=== PATIENT | female | born 1985 | race Caucasian/White ===

== ENCOUNTER 2024-06-01 09:00 | Emergency (ER) | payer MEDICAID, SELFPAY ==
[2024-06-01 09:08] VITALS: BMI 51.7
[2024-06-01 09:09] VITALS: BP 143/69; PULSE 67; RESP 18; TEMP 37.1; O2SAT 96
--- NOTE | 2024-06-01 09:38 | EDNOTE_ITS ---
ED Fever RME/HPI General Chief Complaint: Fever Stated Complaint: Fever, cough, vomiting, body aches Time Seen by Provider: 06/01/24 09:04 Arrival date/time: 06/01/24 09:00 39-year-old female presents emergency department complaints of fever, cough, congestion, bodies, vomiting patient does report positive sick contacts Limitations: no limitations Related Data Home Medications ?Medication ?Instructions ?Recorded ?Confirmed [id number] 1 mg 1 tab PO QDAY 01/16/22 04/08/22 tablet enoxaparin 40 mg/0.4 mL 40 ml subcut QDAY 03/01/22 04/08/22 subcutaneous syringe Previous Rx's ?Medication ?Instructions ?Recorded doxycycline hyclate 100 mg capsule 100 mg PO BID #14 caps 02/17/23 phenazopyridine 200 mg tablet 200 mg PO TID 6 doses #6 tabs 02/17/23 (Pyridium) Allergies Allergy/AdvReac Type Severity Reaction Status Date / Time No Known Allergies Allergy Verified 02/17/23 09:30 Review of Systems Review of Systems Systems Reviewed: All systems reviewed, normal except as documented Constitutional Constitutional: Reports system reviewed and no additional complaints, except as documented, Reports body ache(s), Reports chills, Reports fever(s) and Reports headache(s) Eyes Eyes: Reports system reviewed and no additional complaints, except as documented and Denies blurry vision ENT Ears, Nose, Mouth, and Throat: Reports system reviewed and no additional complaints, except as documented, Reports headache(s), Reports nasal congestion and Reports nasal discharge Cardiovascular Cardiovascular: Reports system reviewed and no additional complaints, except as documented, Denies chest pain and Denies dyspnea Respiratory Respiratory: Reports system reviewed and no additional complaints, except as documented, Denies chest congestion, Denies cough and Denies dyspnea Gastrointestinal Gastrointestinal: Reports system reviewed and no additional complaints, except as documented, Denies abdominal pain, Reports loose stools, Reports nausea and Reports vomiting Integumentary/Breasts Skin/Breast: Reports system reviewed and no additional complaints, except as documented and Denies rash Neurologic Neurologic: Reports system reviewed and no additional complaints, except as documented, Reports as per HPI and Reports headache(s) Past Medical History Past Medical History NEUROLOGIC: Negative Neurological Disorders CARDIAC: Negative Cardiac Disorders Physical Exam General Limitations: no limitations General appearance: alert and in no apparent distress Head Head exam: atraumatic, normocephalic and normal inspection Eye Eye exam: Present normal appearance, PERRL and EOMI; Absent conjunctival injection ENT ENT exam: Present normal exam, normal oropharynx and mucous membranes moist Neck Neck exam: Present normal inspection, full ROM and trachea midline; Absent tenderness, meningismus or lymphadenopathy Chest Chest inspection: Present normal inspection and symmetric chest wall rise Respiratory Respiratory exam: Present normal lung sounds bilaterally; Absent respiratory distress Cardiovascular Cardiovascular exam: Present regular rate, normal rhythm and normal heart sounds Abdominal Exam Abdominal exam: Present soft and normal bowel sounds; Absent distention, tenderness, guarding, rebound or rigidity Extremities Exam Extremities exam: Present normal inspection and full ROM Back Exam Back exam: Present normal inspection and full ROM Neurological Exam Neurological exam: Present alert, oriented X3 and CN II-XII intact Psychiatric Psychiatric exam: Present normal affect and normal mood Skin Skin exam: Present warm, dry, intact and normal color ED Exam General Limitations: Present no limitations General appearance: Present alert and in no apparent distress Head Head exam: Present atraumatic, normocephalic and normal inspection Eye Eye exam: Present normal appearance, PERRL and EOMI; Absent conjunctival injection ENT ENT exam: Present normal exam, normal oropharynx and mucous membranes moist Neck Neck exam: Present normal inspection, full ROM and trachea midline; Absent tenderness, meningismus or lymphadenopathy Chest Chest inspection: Present normal inspection and symmetric chest wall rise Respiratory Respiratory exam: Present normal lung sounds bilaterally; Absent respiratory distress Cardiovascular Cardiovascular exam: Present regular rate, normal rhythm and normal heart sounds Abdominal Exam Abdominal exam: Present soft and normal bowel sounds; Absent distention, tenderness, guarding, rebound or rigidity Extremities Exam Extremities exam: Present normal inspection and full ROM Back Exam Back exam: Present normal inspection and full ROM Neurological Exam Neurological exam: Present alert, oriented X3 and CN II-XII intact Psychiatric Psychiatric exam: Present normal affect and normal mood Skin Skin exam: Present warm, dry, intact and normal color Course Quality Measures none Orders Category Date Time Status Bedside Influenza A&B Antigen Test NOW Care 06/01/24 09:04 Completed Vital Signs Vital signs: Vital Signs Temperature 98.8 F 06/01/24 09:09 Pulse Rate 67 06/01/24 09:09 Respiratory Rate 18 06/01/24 09:09 Blood Pressure 143/69 H 06/01/24 09:09 Pulse Oximetry (%) 96 06/01/24 09:09 Oxygen Delivery Method Room Air 06/01/24 09:09 O2 saturation 96% room air within normal limits Fever MDM Narrative MDM Narrative:: 39-year-old female presents emergency department complaints of fever, cough, congestion, bodies, vomiting patient does report positive sick contacts Patient checked for the flu which came back negative symptoms are consistent with viral illness I did offer an x-ray patient declined Patient will be treated symptomatically Patient given note for work At time of discharge patient well-appearing not a ill or toxic and hemodynamically stable Patient discharged home in no distress to follow-up with primary care doctor in the next 24 to 48 hours and for any worsening symptoms to return to the ER immediately Patient data External records reviewed:: [facility] previous records Clinical information provided by:: patient Social determinants that could affect healthcare access:: none Patient has the following chronic illnesses:: See history How is presenting disease/condition affected by chronic disease/condition?: no chronic disease Evaluation data The following diagnostics were reviewed and interpreted by me:: lab results Lab and/or radiology exams considered but not ordered:: Lab obtained Interpretation Summary: Reviewed by me Medications / Prescriptions Medications or Prescriptions considered but not ordered:: Given Medication administrations:: Given Consultations Consultation(s) initiated? (list below): No Diagnosis Fever Differential Diagnosis: fever of unknown origin, community acquired pneumonia, viral infection and influenza Most likely diagnosis given after review of the tests above:: Viral infection Admission Indicated Admission indicated?: not indicated Admission Request Was there a request for admission?: No Disposition Plan Disposition Plan: Discharge Discharge Attestation Discharge Attestation: The patient and all family members were given an opportunity to ask questions and understood the discharge instructions. Discharge instructions specifically effects, indications for sooner follow up or return to the emergency department, and the expected course of current diagnosis. Patient condition: Stable Discharge Plan Plan Patient Disposition: HOME (Self Care) Disposition Comment: Stable Prescriptions/Referrals Prescriptions/Med Rec: No Action [id number]-[id number] 1 mg Tablet 1 tab PO QDAY enoxaparin 40 mg/0.4 mL syringe 40 ml subcut QDAY Patient Comments: INJECT contents of ONE pre-filled PEN SUBCUTANEOUSLY EVERY DAY doxycycline hyclate 100 mg capsule 100 mg PO BID Qty: 14 0RF phenazopyridine [Pyridium] 200 mg tablet 200 mg PO TID Qty: 6 0RF Problem List Clinical Impression: Viral infection Patient/Caregiver Discharge Instructions Education Materials: ED Viral Syndrome (Adult) Additional Instructions: Please follow up with your primary care doctor in the next 24-48hrs for any worsening symptoms return here immediately Print Language: Kyrgyz Stand Alone Forms: Lisandra Award Info., Work/School Release, Patient Portal Info Letter PA/OCCUPATIONAL HEALTH AND SAFETY ADVISER Supervising Physician PA/OCCUPATIONAL HEALTH AND SAFETY ADVISER Supervising Physician: Dr Miguel
== END 2024-06-01 10:00 | disposition home or self-care (01) ==
LOC: SERX 09:46
PROVIDERS: Emergency Provider Emergency Medicine; PCP Internal Medicine
DX: B34.9 Viral infection, unspecified (principal)
CPT/HCPCS: 87400; 99283

== ENCOUNTER 2024-07-26 07:38 | Emergency (ER) | payer MEDICAID, SELFPAY ==
[2024-07-26 08:02] VITALS: BP 138/92; PULSE 67; RESP 22; TEMP 36.8; O2SAT 99; BMI 52.2
--- NOTE | 2024-07-26 08:06 | XR_ITS ---
Examination: CT abdomen and pelvis without contrast. Coronal 3-D reconstructions. Sagittal 2-D reconstructions. Date and time of exam:July 26, 2024 0914 hrs. Comparison 02/17/2023 Indications: Generalized abdominal pain today, history kidney stones CTDI: vol (mGy): 23.3 DLP: (mGycm): 1511 Technique: Axial images of the abdomen have been obtained, 3 mm slice thickness Intravenous contrast material has not been administered. Low dose protocols were performed. One or more of the following dose reduction techniques were used; automated exposure control, adjustment of the mA and/or KV according to patient size, use of iterative reconstruction technique. Findings: Diffuse fatty liver with hepatomegaly 23 cm Splenomegaly 15 cm Cholelithiasis No pancreatic or adrenal mass 12 mm anterior left renal cyst No renal or ureteral calculi, no hydronephrosis Aorta normal size Minute fat-containing umbilical hernia No pericecal inflammatory change 10 cm pelvic hernia defect containing bowel but no incarcerated bowel Anteverted uterus No adnexal mass Contracted urinary bladder Moderate narrowing hip joints Impression: Hepatosplenomegaly Cholelithiasis, recommend hepatobiliary sonography follow-up No renal or ureteral calculi, no hydronephrosis 10 cm pelvic hernia defect containing bowel but no incarcerated bowel or bowel obstruction
[2024-07-26 08:35] LABS: Collection Type, Urine Clean Catch
[2024-07-26 08:47] LABS: HCG Qualitative,Urine Negative
[2024-07-26 08:47] LABS: Basophils % (Auto) 0 % (0-2.5); Eosinophils # (Auto) 0.2 Thou/mm3 (0.0-0.5); Eosinophils % (Auto) 2 % (0-10); Hematocrit 39.1 % (36.0-46.0); Hemoglobin 12.4 g/dL (12.0-16.0); Immature Granulocytes % (Auto) 1 % (0-0); Immature Granulocytes Auto 0.05 Thou/mm3 (0.00-0.00); Lymphocytes # (Auto) 1.8 Thou/mm3 (1.0-4.8); Lymphocytes % (Auto) 20 % (10-50); Mean Corpuscular HGB Conc 31.7 g/dl (31.0-37.0); Mean Corpuscular Hemoglobin 25.3 pg (25.0-35.0); Mean Corpuscular Volume 80 fL (80-100); Monocytes # (Auto) 0.5 Thou/mm3 (0.0-0.8); Monocytes % (Auto) 6 % (0-12); Neutrophils # (Auto) 6.6 Thou/mm3 (1.8-7.7); Neutrophils % (Auto) 72 % (37-80); Nucleated Red Blood Cell % 0 /100 WBC (0); Platelet Count 288 Thou/mm3 (140-440); RDW Standard Deviation 40.4 fL (36.4-46.3); Red Blood Count 4.91 Miln/mm3 (4.00-5.20); White Blood Count 9.2 Thou/mm3 (3.6-11.0)
[2024-07-26 09:01] LABS: Alanine Aminotransferase 20 U/L (10-49); Albumin, Serum 4.4 gm/dL (3.5-5.0); Albumin/Globulin Ratio 1.6 (1.2-2.2); Alkaline Phosphatase 64 U/L (46-116); Anion Gap 6 (7-16); Aspartate Amino Transferase 15 U/L (0-34); BUN/Creatinine Ratio 13 Ratio (12-20); Bilirubin,Total 0.6 mg/dL (0.3-1.2); Blood Urea Nitrogen 8 mg/dL (9-23); Calcium 9.3 mg/dL (8.3-10.6); Calcium (Corrected) 9.3 mg/dL (8.5-10.1); Carbon Dioxide 28.8 mMol/L (20.0-31.0); Chloride 106 mMol/L (98-107); Creatinine (Component) 0.6 mg/dL (0.6-1.3); Estimated Creatinine Clearance 189.2 mL/min (>60); Globulin 2.8 gm/dL (2.3-3.5); Glucose 104 mg/dL (74-106); Lipase 37 U/L (12-53); Osmolality,Calculated 279 (275-295); Potassium 3.6 mMol/L (3.4-5.1); Sodium 141 mMol/L (136-145); Total Protein 7.2 gm/dL (5.7-8.2); eGFR > 60 See Note
[2024-07-26 09:12] LABS: Amphetamine/Methamp Scrn,U Negative (Negative); Barbiturate Screen,Urine Negative (Negative); Benzodiazepines Screen,Urine Negative (Negative); Benzoylecgonine Screen, Ur Negative (Negative); Fentanyl Screen,Urine Negative (Negative); Opiate Screen,Urine Negative (Negative); THC Screen,Urine Positive (Negative)
[2024-07-26 09:58] LABS: RBC,Urine 2 /hpf (0-3); Squamous Epithelial Cell,Urine 3 /hpf (0-5); WBC,Urine 2 /hpf (0-5)
[2024-07-26 10:03] LABS: Bilirubin,Urine Negative (Negative); Blood,Urine Negative (Negative); Clarity,Urine Clear (Clear/Hazy); Color,Urine Lt Yellow (Lt Yel-Yel); Culture Indicated,Urine Not Indicated; Glucose, Urine Negative (Negative); Ketones,Urine Negative (Negative); Leukocyte Esterase,Urine Negative (Negative); Nitrite,Urine Negative (Negative); Protein,Urine Trace (Neg - Trace); Specific Gravity,Urine 1.025 (1.001-1.035); Urobilinogen,Urine 0.2 mg/dL (0.0-1.0)
[2024-07-26] MEDS: KETOROLAC INJ 30 MG/ML VIAL IM (11:50)
[2024-07-26] MEDS: HYDROcodone/APAP 5/325 TABLET 1 TAB PO (11:50)
--- NOTE | 2024-07-26 12:26 | EDNOTE_ITS ---
ED Abdominal Pain RME/HPI General Chief Complaint: Abdominal Pain Stated complaint: ABD PAIN, NUMBNESS THROUGHOUT BODY, COUGH, SOB Time seen by provider: 07/26/24 07:42 Arrival date/time: 07/26/24 07:38 39-year-old female presents the emergency department today complaints of abdominal pain patient reports that she has been having pain to her site as well as lower abdomen ongoing for months. Patient reports no fever nausea or vomiting Limitations: no limitations Related Data Home Medications ?Medication ?Instructions ?Recorded ?Confirmed [id number] 1 mg 1 tab PO QDAY 2 04/08/22 tablet enoxaparin 40 mg/0.4 mL 40 ml subcut QDAY 03/01/22 1 06/08/21 subcutaneous syringe Previous Rx's ?Medication ?Instructions ?Recorded doxycycline hyclate 100 mg capsule 100 mg PO BID #14 c aps 02/17/23 phenazopyridine 200 mg tablet 200 mg PO TID 6 doses #6 tabs 02/17/23 (Pyridium) docusate sodium 100 mg capsule 100 mg PO BID 7 days #1 4 caps 07/26/24 hydrocodone 5 mg-acetaminophen 325 1 tab PO BID PRN pa in #10 tabs 07/26/24 mg tablet ibuprofen 800 mg tablet 800 mg PO TID PRN pain #30 t abs 07/26/24 polyethylene glycol 3350 17 17 g PO QDAY 3 days #119 g penelope 07/26/24 gram/dose oral powder (Miralax) Allergies Allergy/AdvReac Type Severity Reaction Status Date / Time No Known Allergies Allergy Verified 02/17/23 09:30 Review of Systems Review of Systems Systems Reviewed: All systems reviewed, normal except as documented Constitutional Constitutional: Reports system reviewed and no additional complaints, except as documented, Denies fever(s) and Denies headache(s) Eyes Eyes: Reports system reviewed and no additional complaints, except as documented and Denies blurry vision ENT Ears, Nose, Mouth, and Throat: Reports system reviewed and no additional complaints, except as documented, Denies headache(s), Denies nasal congestion and Denies nasal discharge Cardiovascular Cardiovascular: Reports system reviewed and no additional complaints, except as documented, Denies chest pain and Denies dyspnea Respiratory Respiratory: Reports system reviewed and no additional complaints, except as documented, Denies chest congestion, Denies cough and Denies dyspnea Gastrointestinal Gastrointestinal: Reports system reviewed and no additional complaints, except as documented and Reports abdominal pain Integumentary/Breasts Skin/Breast: Reports system reviewed and no additional complaints, except as documented and Denies rash Neurologic Neurologic: Reports system reviewed and no additional complaints, except as documented, Reports as per HPI and Denies headache(s) Past Medical History Past Medical History NEUROLOGIC: Negative Neurological Disorders or Seizures CARDIAC: Negative Cardiac Disorders, Myocardial Infarction or Congestive Heart Failure RESPIRATORY: Negative Chronic Obstructive Pulmonary Disease (COPD) or Asthma GASTROINTESTINAL: Negative Gastrointestinal Disorders or Hepatitis GENITOURINARY: Negative Genitourinary Disorders or Renal Disease REPRODUCTIVE: Positive Previous Pregnancies MUSCULOSKELETAL: Negative Musculoskeletal Disorders ENDOCRINE: Positive Endocrine Disorders; Negative Diabetes Mellitus Type 1 or Diabetes Mellitus Type 2 HEMATOLOGIC: Positive Blood Disorders and Clotting Problems; Negative Sickle Cell Disease PSYCHO/SOCIAL: Positive Anxiety and Depression OTHER HISTORY: Positive Hospitalization and Chicken Pox; Negative Autoimmune Disease, Blood Transfusions, Blood Transfusion Reaction, Anesthesia Reactions, MRSA, VRSA, Vancomycin-Resistant Enterococci, Human Immunodeficiency Virus (HIV), Measles, Mumps, Rubella (Indian Measles), Pertussis, Clostridium Difficile, Cancer or Lung Cancer Family History FAMILY HISTORY: Positive Family Cardiac Disorders and Family Cancer; Negative Family Psychiatric Problems, Family Respiratory Disorders, Family Gastrointestinal Problems, Family Surgery or Family Anesthesia Reaction Surgical History SURGICAL: Positive Throat Surgery and Section Social History SMOKING STATUS: Never smoker SECOND HAND EXPOSURE: No 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) ED Exam General Limitations: Present no limitations General appearance: Present alert and in no apparent distress Head Head exam: Present atraumatic, normocephalic and normal inspection Eye Eye exam: Present normal appearance, PERRL and EOMI; Absent conjunctival injection ENT ENT exam: Present normal exam, normal oropharynx and mucous membranes moist Neck Neck exam: Present normal inspection, full ROM and trachea midline Chest Chest inspection: Present normal inspection and symmetric chest wall rise Respiratory Respiratory exam: Present normal lung sounds bilaterally; Absent respiratory distress Cardiovascular Cardiovascular exam: Present regular rate, normal rhythm and normal heart sounds; Absent bradycardia, tachycardia or irregular rhythm Abdominal Exam Abdominal exam: Present soft and normal bowel sounds; Absent distention, tenderness, guarding, rebound or rigidity Extremities Exam Extremities exam: Present normal inspection and full ROM Back Exam Back exam: Present normal inspection and full ROM Neurological Exam Neurological exam: Present alert, oriented X3, CN II-XII intact, normal gait and reflexes normal; Absent motor sensory deficit Psychiatric Psychiatric exam: Present normal affect and normal mood; Absent depressed or agitated Skin Skin exam: Present warm, dry, intact and normal color; Absent rash Course Quality Measures none Orders Category Date Time Status Consult to General Surgery Stat Cons 07/26/24 12:[address] abdomen pelvis wo con Stat Exams 07/26/24 08:06 Completed CBC Stat Lab 07/26/24 08:30 Completed Comprehensive Metabolic Panel Stat Lab 07/26/24 08:30 Completed Drug Screen,Urine Stat Lab 07/26/24 08:32 Completed HCG Qualitative,Urine Stat Lab 07/26/24 08:32 Completed Lipase Stat Lab 07/26/24 08:30 Completed UA, C/S IF [Urinalysis, C/S if Indicated] Stat Lab 07/26/24 08:32 Completed HYDROcodone*/APAP 5/325 [[place] 5/325] Med 07/26/24 10:47 Discontinued 1 tab PO X1 ONE Ketorolac Inj [Toradol Inj] Med 07/26/24 10:47 Discontinued 30 mg IM X1 ONE Vital Signs Vital signs: Vital Signs Temperature 98.2 F 07/26/24 08:02 Pulse Rate 67 07/26/24 08:02 Respiratory Rate 22 H 07/26/24 08:02 Blood Pressure 138/92 H 07/26/24 08:02 Pulse Oximetry (%) 99 07/26/24 08:02 Oxygen Delivery Method Room Air 07/26/24 08:02 O2 saturation 99% room air within normal limits Abdominal Pain [facility] MDM Narrative MDM Narrative:: 39-year-old female presents the emergency department today complaints of abdominal pain patient reports that she has been having pain to her site as well as lower abdomen ongoing for months. Patient reports no fever nausea or vomiting On exam patient does have tenderness to the abdomen I cannot appreciate any abnormality on exam patient is morbidly obese Lab work as well as CT scan obtained CT scan consistent with large hernia Consultation: I asked Dr. Garcia to come evaluate the patient Surgeon evaluated patient felt patient be discharged home at this time follow-up on an outpatient basis Patient discharged home in no distress to follow-up with primary care doctor in the next 24 to 48 hours and for any worsening symptoms to return to the ER immediately Patient data External records reviewed:: [facility] previous records Clinical information provided by:: patient Social determinants that could affect healthcare access:: none Patient has the following chronic illnesses:: She history How is presenting disease/condition affected by chronic disease/condition?: exacerbated by Evaluation data The following diagnostics were reviewed and interpreted by me:: lab results and radiology exam(s) Lab and/or radiology exams considered but not ordered:: Labs radiology obtained Interpretation Summary: Reviewed by me Medications / Prescriptions Medications or Prescriptions considered but not ordered:: Given Medication administrations:: Medication Administration History Discontinued Medications Hydrocodone Bitart/Acetaminophen (Hydrocodone/Apap 5/325 Tablet) 1 tab PO X1 ONE Stop: 07/26/24 10:48 Last Admin: 07/26/24 11:50 Dose: 1 tab Documented By: AF Ketorolac Tromethamine (Ketorolac Inj 30 Mg/Ml Vial) 30 mg IM X1 ONE Stop: 07/26/24 10:48 Last Admin: 07/26/24 11:50 Dose: 30 mg Documented By: THIEN Given Consultations Consultation(s) initiated? (list below): Yes Consultation #1 (Physician, Specialty, Details): Dr. Garcia general surgeon Diagnosis Differential diagnosis abdominal pain: abdominal pain, acute appendicitis, calculus of kidney, constipation, diverticulitis, pancreatitis and small bowel obstruction Most likely diagnosis given after review of the tests above:: Abdominal pain, hernia Admission Indicated Admission indicated?: not indicated Admission Request Was there a request for admission?: No Disposition Plan Disposition Plan: Discharge Discharge Attestation Discharge Attestation: The patient and all family members were given an opportunity to ask questions and understood the discharge instructions. Discharge instructions specifically effects, indications for sooner follow up or return to the emergency department, and the expected course of current diagnosis. Patient condition: Stable Discharge Plan Plan Patient Disposition: HOME (Self Care) Disposition Comment: Stable Prescriptions/Referrals Prescriptions/Med Rec: New ibuprofen 800 mg tablet 800 mg PO TID PRN (Reason: pain) Qty: 30 0RF hydrocodone-acetaminophen 5-325 mg tablet 1 tab PO BID MDD 10 PRN (Reason: pain) Qty: 10 0RF polyethylene glycol 3350 [Miralax] 17 gram/dose powder 17 g PO QDAY 3 Days Qty: 119 0RF docusate sodium 100 mg capsule 100 mg PO BID 7 Days Qty: 14 0RF No Action [id number] 1 mg Tablet 1 tab PO QDAY enoxaparin 40 mg/0.4 mL syringe 40 ml subcut QDAY Patient Comments: INJECT contents of ONE pre-filled PEN SUBCUTANEOUSLY EVERY DAY doxycycline hyclate 100 mg capsule 100 mg PO BID Qty: 14 0RF phenazopyridine [Pyridium] 200 mg tablet 200 mg PO TID Qty: 6 0RF Referrals: No Primary/Family,Physician [Primary Care Provider] - 07/27/24 Problem List Clinical Impression: Pelvic hernia, Abdominal pain Patient/Caregiver Discharge Instructions Education Materials: Abdominal Pain Additional Instructions: Please follow up with your primary care doctor in the next 24-48hrs for any worsening symptoms return here immediately Print Language: Armenian Stand Alone Forms: Lisandra Award Info., Patient Portal Info Letter PA/CANVASS MANAGER Supervising Physician PA/CANVASS MANAGER Supervising Physician: Dr. Altman
== END 2024-07-26 12:31 | disposition home or self-care (01) ==
PROVIDERS: Nurse Practitioner Primary Care; Emergency Provider Emergency Medicine
DX: K46.9 Unspecified abdominal hernia without obstruction or gangrene (principal); E66.01 Morbid (severe) obesity due to excess calories; Z68.43 Body mass index [BMI] 50.0-59.9, adult
CPT/HCPCS: 36415; 74176; 80053; 80307; 81001; 81025; 83690; 85025; 96372; 99283; J1885; A9270

== ENCOUNTER 2024-08-20 18:19 | Emergency (ER) | payer MEDICAID, SELFPAY ==
[2024-08-20 18:19] VITALS: BMI 48.4
[2024-08-20 19:12] VITALS: BP 159/79; PULSE 66; RESP 18; TEMP 36.4; O2SAT 98
[2024-08-20] MEDS: KETOROLAC INJ 60 MG/2 ML VIAL IM (19:45)
[2024-08-20] MEDS: AMOXICILLIN/POT CLAV 875 TABLET 1 TAB PO (19:46)
--- NOTE | 2024-08-21 03:41 | EDNOTE_ITS ---
ED Dental RME/HPI General Chief complaint: Dental/Oral/Throat Stated complaint: RIGHT LOWER JAW PAIN Time Seen by Provider: 08/20/24 19:25 Arrival date/time: 08/20/24 18:19 39F with history of drug use and throat cancer presents to ED with 1 week of R lower dental pain. Patient is supposed to have dental procedure pending insurance removal. Limitations: no limitations Related Data Home Medications ?Medication ?Instructions ?Recorded ?Confirmed [id number] 1 mg 1 tab PO QDAY 2 04/08/22 tablet enoxaparin 40 mg/0.4 mL 40 ml subcut QDAY 03/01/22 1 06/08/21 subcutaneous syringe Previous Rx's ?Medication ?Instructions ?Recorded doxycycline hyclate 100 mg capsule 100 mg PO BID #14 c aps 02/17/23 phenazopyridine 200 mg tablet 200 mg PO TID 6 doses #6 tabs 02/17/23 (Pyridium) hydrocodone 5 mg-acetaminophen 325 1 tab PO BID PRN pa in #10 tabs 07/26/24 mg tablet ibuprofen 800 mg tablet 800 mg PO TID PRN pain #30 t abs 07/26/24 acetaminophen 650 mg 650 mg PO Q12H PRN fever or pain 08/20/24 tablet,extended release #30 tabs amoxicillin 875 mg-potassium 1 tab PO BID 7 days #14 t abs 08/20/24 clavulanate 125 mg tablet Allergies Allergy/AdvReac Type Severity Reaction Status Date / Time No Known Allergies Allergy Verified 08/20/24 18:19 Review of Systems Review of Systems Systems Reviewed: All systems reviewed, normal except as documented Constitutional Constitutional: Reports system reviewed and no additional complaints, except as documented, Denies fever(s) and Denies headache(s) ENT Ears, Nose, Mouth, and Throat: Reports as per HPI, Reports dental pain, Denies disequilibrium and Denies headache(s) Cardiovascular Cardiovascular: Reports system reviewed and no additional complaints, except as documented, Denies chest pain and Denies dyspnea Respiratory Respiratory: Reports system reviewed and no additional complaints, except as documented, Denies cough and Denies dyspnea Gastrointestinal Gastrointestinal: Reports system reviewed and no additional complaints, except as documented, Denies abdominal pain, Denies nausea and Denies vomiting Neurologic Neurologic: Reports system reviewed and no additional complaints, except as documented, Denies confusion, Denies disequilibrium and Denies headache(s) Psychiatric Psychiatric: Denies confusion Past Medical History Past Medical History NEUROLOGIC: Negative Neurological Disorders or Seizures CARDIAC: Negative Cardiac Disorders, Myocardial Infarction or Congestive Heart Failure RESPIRATORY: Negative Chronic Obstructive Pulmonary Disease (COPD) or Asthma GASTROINTESTINAL: Negative Gastrointestinal Disorders or Hepatitis GENITOURINARY: Negative Genitourinary Disorders or Renal Disease REPRODUCTIVE: Positive Previous Pregnancies MUSCULOSKELETAL: Negative Musculoskeletal Disorders ENDOCRINE: Positive Endocrine Disorders; Negative Diabetes Mellitus Type 1 or Diabetes Mellitus Type 2 HEMATOLOGIC: Positive Blood Disorders and Clotting Problems; Negative Sickle Cell Disease PSYCHO/SOCIAL: Positive Anxiety and Depression OTHER HISTORY: Positive Hospitalization and Chicken Pox; Negative Autoimmune Disease, Blood Transfusions, Blood Transfusion Reaction, Anesthesia Reactions, MRSA, VRSA, Vancomycin-Resistant Enterococci, Human Immunodeficiency Virus (HIV), Measles, Mumps, Rubella (Faroese Measles), Pertussis, Clostridium Difficile, Cancer or Lung Cancer Family History FAMILY HISTORY: Positive Family Cardiac Disorders and Family Cancer; Negative Family Psychiatric Problems, Family Respiratory Disorders, Family Gastrointestinal Problems, Family Surgery or Family Anesthesia Reaction Surgical History SURGICAL: Positive Throat Surgery and Section Social History SMOKING STATUS: Never smoker SECOND HAND EXPOSURE: No 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) ED Exam General Limitations: Present no limitations General appearance: Present alert and in no apparent distress Head Head exam: Present atraumatic Eye Eye exam: Present normal appearance, PERRL and EOMI ENT ENT exam: Present mucous membranes moist Expanded ENT Exam Teeth exam: Present dental caries and gingival swelling Neck Neck exam: Present normal inspection, full ROM and trachea midline Chest Chest inspection: Present normal inspection and symmetric chest wall rise Respiratory Respiratory exam: Present normal lung sounds bilaterally Cardiovascular Cardiovascular exam: Present regular rate, normal rhythm and normal heart sounds Abdominal Exam Abdominal exam: Present soft and normal bowel sounds Extremities Exam Extremities exam: Present normal inspection and full ROM Back Exam Back exam: Present normal inspection and full ROM Neurological Exam Neurological exam: Present alert, oriented X3 and CN II-XII intact Psychiatric Psychiatric exam: Present normal affect and normal mood Skin Skin exam: Present warm, dry, intact and normal color Course Quality Measures none Orders Category Date Time Status Amoxicillin/Pot Clav 875 [Augmentin 875] Med 08/20/24 19:25 Discontinued 1 tab PO X1 ONE Ketorolac Inj [Toradol Inj] Med 08/20/24 19:25 Discontinued 60 mg IM X1 ONE Vital Signs Vital signs: Vital Signs Temperature 97.6 F 08/20/24 19:12 Pulse Rate 66 08/20/24 19:12 Respiratory Rate 18 08/20/24 19:12 Blood Pressure 159/79 H 08/20/24 19:12 Pulse Oximetry (%) 98 08/20/24 19:12 Oxygen Delivery Method Room Air 08/20/24 19:12 O2 at 98% on RA and WNLs Dental / Oral MDM Narrative MDM Narrative:: 39F with history of drug use and throat cancer presents to ED with 1 week of R lower dental pain. Patient is supposed to have dental procedure pending insurance removal. Physical exam reveals multiple dental caries and gingival swelling. Patient is afebrile, calm, and alert. Likely dental infection. Patient data External records reviewed:: [facility] [place] previous records Clinical information provided by:: patient Social determinants that could affect healthcare access:: none Patient has the following chronic illnesses:: drug use and throat cancer How is presenting disease/condition affected by chronic disease/condition?: exacerbated by Evaluation data The following diagnostics were reviewed and interpreted by me:: other (specify) (none) Lab and/or radiology exams considered but not ordered:: not ordered Interpretation Summary: n/a Medications / Prescriptions Medications or Prescriptions considered but not ordered:: ordered Medication administrations:: Medication Administration History Discontinued Medications Amoxicillin/Clavulanate Potassium (Amoxicillin/Pot Clav 875 Tablet) 1 tab PO X1 ONE Stop: 08/20/24 19:26 Last Admin: 08/20/24 19:46 Dose: 1 tab Documented By: Ketorolac Tromethamine (Ketorolac Inj 60 Mg/2 Ml Vial) 60 mg IM X1 ONE Stop: 08/20/24 19:26 Last Admin: 08/20/24 19:45 Dose: 60 mg Documented By: above Consultations Consultation(s) initiated? (list below): No Diagnosis Dental Differential Diagnosis: gingival abscess, dental caries, toothache, dental abscess, fracture of tooth and aphthous ulcer Most likely diagnosis given after review of the tests above:: dental infection Admission Indicated Admission indicated?: not indicated Admission Request Was there a request for admission?: No Disposition Plan Disposition Plan: Discharge Discharge Attestation Discharge Attestation: The patient and all family members were given an opportunity to ask questions and understood the discharge instructions. Discharge instructions specifically effects, indications for sooner follow up or return to the emergency department, and the expected course of current diagnosis. Patient condition: Stable Discharge Plan Plan Patient Disposition: HOME (Self Care) Disposition Comment: Stable Prescriptions/Referrals Prescriptions/Med Rec: New amoxicillin-pot clavulanate 875-125 mg tablet 1 tab PO BID 7 Days Qty: 14 0RF acetaminophen 650 mg tablet extended release 650 mg PO Q12H PRN (Reason: fever or pain) Qty: 30 0RF No Action [id number]-FA 1 mg Tablet 1 tab PO QDAY enoxaparin 40 mg/0.4 mL syringe 40 ml subcut QDAY Patient Comments: INJECT contents of ONE pre-filled PEN SUBCUTANEOUSLY EVERY DAY doxycycline hyclate 100 mg capsule 100 mg PO BID Qty: 14 0RF phenazopyridine [Pyridium] 200 mg tablet 200 mg PO TID Qty: 6 0RF ibuprofen 800 mg tablet 800 mg PO TID PRN (Reason: pain) Qty: 30 0RF hydrocodone-acetaminophen 5-325 mg tablet 1 tab PO BID MDD 10 PRN (Reason: pain) Qty: 10 0RF Problem List Clinical Impression: Dental infection Patient/Caregiver Discharge Instructions Education Materials: ED Dental Abscess Additional Instructions: Please follow-up with PCP within 24-48 hours and return immediately if symptoms worsen. See dentist soon. Print Language: [place] Stand Alone Forms: Patient Portal Info Letter VESNA/KAI Supervising Physician VESNA/KAI Supervising Physician: Dr. Altman
== END 2024-08-20 20:01 | disposition home or self-care (01) ==
PROVIDERS: Emergency Provider Emergency Medicine
DX: K04.7 Periapical abscess without sinus (principal)
CPT/HCPCS: 96372; 99283; J1885; A9270

== ENCOUNTER 2024-08-21 19:34 | Emergency (ER) | payer MEDICAID, SELFPAY ==
[2024-08-21 19:34] VITALS: BMI 48.4
--- NOTE | 2024-08-21 20:08 | EDNOTE_ITS ---
ED Dental RME/HPI General Chief complaint: Dental/Oral/Throat Stated complaint: RT UPPER LOWER DENTAL PAIN Time Seen by Provider: 08/21/24 19:41 Source: patient, RN notes reviewed and old records reviewed Arrival date/time: 08/21/24 19:34 Mode of arrival: ambulatory Limitations: no limitations RME / HPI RME / HPI Narrative: 39yof presents to ED for 1 week history of dental pain. Patient was evaluated in ED yesterday for same complaint, prescribed Augmentin and Tylenol. Patient followed up with dentistry this morning and was referred to [facility] for dental surgery. Patient has alternated ibuprofen and Tylenol with little relief. No fever, facial swelling, shortness of breath, nausea/vomiting or dizziness reported. Related Data Home Medications ?Medication ?Instructions ?Recorded ?Confirmed [id number] 1 mg 1 tab PO QDAY 01/16/2 2 04/08/22 tablet enoxaparin 40 mg/0.4 mL 40 ml subcut QDAY 03/01/22 1 06/08/21 subcutaneous syringe Previous Rx's ?Medication ?Instructions ?Recorded doxycycline hyclate 100 mg capsule 100 mg PO BID #14 c aps 02/17/23 phenazopyridine 200 mg tablet 200 mg PO TID 6 doses #6 tabs 02/17/23 (Pyridium) hydrocodone 5 mg-acetaminophen 325 1 tab PO BID PRN pa in #10 tabs 07/26/24 mg tablet ibuprofen 800 mg tablet 800 mg PO TID PRN pain #30 t abs 07/26/24 acetaminophen 650 mg 650 mg PO Q12H PRN fever or pain 08/20/24 tablet,extended release #30 tabs amoxicillin 875 mg-potassium 1 tab PO BID 7 days #14 t abs 08/20/24 clavulanate 125 mg tablet acetaminophen 300 mg-codeine 30 mg 1 tab PO TID PRN pa in #15 tabs 08/21/24 tablet Allergies Allergy/AdvReac Type Severity Reaction Status Date / Time No Known Allergies Allergy Verified 08/20/24 18:19 Review of Systems Review of Systems Systems Reviewed: All systems reviewed, normal except as documented Constitutional Constitutional: Denies chills and Denies fever(s) ENT Ears, Nose, Mouth, and Throat: Reports dental pain, Denies dizziness and Denies sore throat Cardiovascular Cardiovascular: Denies dyspnea Respiratory Respiratory: Denies dyspnea Gastrointestinal Gastrointestinal: Denies nausea and Denies vomiting Neurologic Neurologic: Denies dizziness Past Medical History Past Medical History GASTROINTESTINAL: Positive Obesity REPRODUCTIVE: Positive Previous Pregnancies ENT: Positive History of ENT Problems (Throat CA) PSYCHO/SOCIAL: Positive Anxiety and Depression OTHER HISTORY: Positive Hospitalization Surgical History SURGICAL: Positive Throat Surgery and Section Social History SMOKING STATUS: Never smoker SECOND HAND EXPOSURE: No 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 Fractured right upper molar. No gingival erythema or swelling. No obvious drainable abscess. No facial swelling or trismus) Neck Neck exam: Present normal inspection and full ROM Chest Chest inspection: Present normal inspection and symmetric chest wall rise Respiratory Respiratory exam: Present normal lung sounds bilaterally; Absent respiratory distress Cardiovascular Cardiovascular exam: Present regular rate and normal rhythm Extremities Exam Extremities exam: Present normal inspection and full ROM Neurological Exam Neurological exam: Present alert and oriented X3 Psychiatric Psychiatric exam: Present normal affect and normal mood Skin Skin exam: Present warm, dry and intact Course Quality Measures none Orders Category Date Time Status HYDROcodone*/APAP 7.5/325 [Sidney 7.5/325] Med 08/21/24 20:08 Discontinued 1 tab PO X1 ONE Ketorolac Inj [Toradol Inj] Med 08/21/24 20:08 Discontinued 30 mg IM X1 ONE Vital Signs Vital signs: Vital Signs Temperature 98.0 F 08/21/24 20:22 Pulse Rate 110 H 08/21/24 20:22 Respiratory Rate 18 08/21/24 20:22 Blood Pressure 114/81 08/21/24 20:22 Pulse Oximetry (%) 96 08/21/24 20:22 Oxygen Delivery Method Room Air 08/21/24 20:22 Dental / Oral MDM Narrative MDM Narrative:: 39yof presents to ED for 1 week history of dental pain. Patient was evaluated in ED yesterday for same complaint, prescribed Augmentin and Tylenol. Patient followed up with dentistry this morning and was referred to [facility] for dental surgery. Patient has alternated ibuprofen and Tylenol with little relief. No fever, facial swelling, shortness of breath, nausea/vomiting or dizziness reported. Pain treated. Patient is nontoxic-appearing, afebrile, vitals are stable. No evidence of airway compromise or respiratory distress. Encouraged close follow- up with OMFS. Stable for discharge, RTED precautions given. Patient data External records reviewed:: [facility] previous records (ED visit 08/20/2024 for dental pain) Clinical information provided by:: patient Social determinants that could affect healthcare access:: none Patient has the following chronic illnesses:: Obesity How is presenting disease/condition affected by chronic disease/condition?: exacerbated by Evaluation data The following diagnostics were reviewed and interpreted by me:: other (specify) (None) Lab and/or radiology exams considered but not ordered:: None Interpretation Summary: na Medications / Prescriptions Medications or Prescriptions considered but not ordered:: None Medication administrations:: Medication Administration History Discontinued Medications Hydrocodone Bitart/Acetaminophen (Hydrocodone/Apap 7.5/325 Tablet) 1 tab PO X1 ONE Stop: 08/21/24 20:09 Last Admin: 08/21/24 20:24 Dose: 1 tab Documented By: ALICIA Ketorolac Tromethamine (Ketorolac Inj 60 Mg/2 Ml Vial) 30 mg IM X1 ONE Stop: 08/21/24 20:09 Last Admin: 08/21/24 20:24 Dose: 30 mg Documented By: ALICIA Above medications administered in ED Consultations Consultation(s) initiated? (list below): No Diagnosis Dental Differential Diagnosis: gingival abscess, dental caries, toothache, dental abscess and fracture of tooth Most likely diagnosis given after review of the tests above:: Dental pain, dental caries Admission Indicated Admission indicated?: not indicated Admission Request Was there a request for admission?: No Disposition Plan Disposition Plan: Discharge Discharge Attestation Discharge Attestation: The patient and all family members were given an opportunity to ask questions and understood the discharge instructions. Discharge instructions specifically effects, indications for sooner follow up or return to the emergency department, and the expected course of current diagnosis. Patient condition: Stable Discharge Plan Plan Patient Disposition: HOME (Self Care) Patient condition on transfer: Stable Prescriptions/Referrals Prescriptions/Med Rec: New acetaminophen-codeine 300-30 mg tablet 1 tab PO TID PRN (Reason: pain) Qty: 15 0RF No Action [id number] 1 mg Tablet 1 tab PO QDAY enoxaparin 40 mg/0.4 mL syringe 40 ml subcut QDAY Patient Comments: INJECT contents of ONE pre-filled PEN SUBCUTANEOUSLY EVERY DAY doxycycline hyclate 100 mg capsule 100 mg PO BID Qty: 14 0RF phenazopyridine [Pyridium] 200 mg tablet 200 mg PO TID Qty: 6 0RF ibuprofen 800 mg tablet 800 mg PO TID PRN (Reason: pain) Qty: 30 0RF hydrocodone-acetaminophen 5-325 mg tablet 1 tab PO BID MDD 10 PRN (Reason: pain) Qty: 10 0RF amoxicillin-pot clavulanate 875-125 mg tablet 1 tab PO BID 7 Days Qty: 14 0RF acetaminophen 650 mg tablet extended release 650 mg PO Q12H PRN (Reason: fever or pain) Qty: 30 0RF Referrals: Temporary Provider,ED [Physician] - In 1 week Problem List Clinical Impression: Toothache, Dental caries Patient/Caregiver Discharge Instructions Education Materials: ED Dental Pain Print Language: [place] Stand Alone Forms: Lisandra Award Info., Patient Portal Info Letter PA/[employer] SAL[employer] STAFF Supervising Physician PA/[employer] SAL[employer] STAFF Supervising Physician: Anupama
[2024-08-21 20:22] VITALS: BP 114/81; PULSE 110; RESP 18; TEMP 36.7; O2SAT 96
[2024-08-21] MEDS: HYDROcodone/APAP 7.5/325 TABLET 1 TAB PO (20:24)
[2024-08-21] MEDS: KETOROLAC INJ 60 MG/2 ML VIAL 30 MG IM (20:24)
== END 2024-08-22 14:24 | disposition home or self-care (01) ==
LOC: SERX 20:31
PROVIDERS: Emergency Provider Emergency Medicine; PCP Family Medicine
DX: K02.9 Dental caries, unspecified (principal)
CPT/HCPCS: 96372; 99283; J1885; A9270

== ENCOUNTER 2024-08-24 09:51 | Emergency (ER) | payer MEDICAID, SELFPAY ==
[2024-08-24 09:52] VITALS: BMI 53.2
[2024-08-24 10:05] VITALS: BP 153/101; PULSE 74; RESP 18; TEMP 37.1; O2SAT 97; BMI 48.2
[2024-08-24] MEDS: HYDROcodone/APAP 5/325 TABLET 1 TAB PO (11:06)
[2024-08-24] MEDS: LIDOCAINE HCL 1% 20 ML VIAL 2.1 ML INFL (11:07)
[2024-08-24] MEDS: cefTRIAXone SOD INJ 1,000 MG VIAL 1000 MG IM (11:07)
[2024-08-24] MEDS: DEXAMETHASONE SOD PHOS INJ 10 MG/ML VIAL PO (11:10)
--- NOTE | 2024-08-24 16:20 | PD.EDDENTL ---
ED Dental RME/HPI General Chief complaint: Dental/Oral/Throat Stated complaint: SWELLING RIGHT SIDE OF MOUTH Time Seen by Provider: 08/24/24 09:57 Arrival date/time: 08/24/24 09:51 39-year-old female presents to the emergency department today for complaints of infection tooth in the right lower jaw. Patient has associated swelling patient ports no fever nausea or vomiting no difficulty swallowing or breathing Limitations: no limitations Related Data Home Medications ?Medication ?Instructions ?Recorded ?Confirmed [id number] 1 mg 1 tab PO QDAY 01/16/22 04/08/22 tablet enoxaparin 40 mg/0.4 mL 40 ml subcut QDAY 03/01/22 04/08/22 subcutaneous syringe Previous Rx's ?Medication ?Instructions ?Recorded doxycycline hyclate 100 mg capsule 100 mg PO BID #14 caps 02/17/23 phenazopyridine 200 mg tablet 200 mg PO TID 6 doses #6 tabs 02/17/23 (Pyridium) hydrocodone 5 mg-acetaminophen 325 1 tab PO BID PRN pain #10 tabs 07/26/24 mg tablet ibuprofen 800 mg tablet 800 mg PO TID PRN pain #30 tabs 07/26/24 acetaminophen 650 mg 650 mg PO Q12H PRN fever or pain 08/20/24 tablet,extended release #30 tabs amoxicillin 875 mg-potassium 1 tab PO BID 7 days #14 tabs 08/20/24 clavulanate 125 mg tablet acetaminophen 300 mg-codeine 30 mg 1 tab PO TID PRN pain #15 tabs 08/21/24 tablet clindamycin HCl 150 mg capsule 450 mg (3 x 150 mg) PO TID 7 days 08/24/24 #63 caps hydrocodone 5 mg-acetaminophen 325 1 tab PO BID PRN pain #10 tabs 08/24/24 mg tablet ibuprofen 800 mg tablet 800 mg PO TID PRN pain #30 tabs 08/24/24 Allergies Allergy/AdvReac Type Severity Reaction Status Date / Time No Known Allergies Allergy Verified 08/24/24 09:54 Review of Systems Review of Systems Systems Reviewed: All systems reviewed, normal except as documented Constitutional Constitutional: Reports system reviewed and no additional complaints, except as documented, Denies fever(s) and Denies headache(s) Eyes Eyes: Reports system reviewed and no additional complaints, except as documented and Denies blurry vision ENT Ears, Nose, Mouth, and Throat: Reports system reviewed and no additional complaints, except as documented, Reports facial pain, Denies headache(s), Denies nasal congestion and Denies nasal discharge Cardiovascular Cardiovascular: Reports system reviewed and no additional complaints, except as documented, Denies chest pain and Denies dyspnea Respiratory Respiratory: Reports system reviewed and no additional complaints, except as documented, Denies chest congestion, Denies cough and Denies dyspnea Gastrointestinal Gastrointestinal: Reports system reviewed and no additional complaints, except as documented and Denies abdominal pain Integumentary/Breasts Skin/Breast: Reports system reviewed and no additional complaints, except as documented and Denies rash Neurologic Neurologic: Reports system reviewed and no additional complaints, except as documented, Reports as per HPI and Denies headache(s) Past Medical History Past Medical History NEUROLOGIC: Negative Neurological Disorders or Seizures CARDIAC: Negative Cardiac Disorders, Myocardial Infarction or Congestive Heart Failure RESPIRATORY: Negative Chronic Obstructive Pulmonary Disease (COPD) or Asthma GASTROINTESTINAL: Positive Obesity; Negative Gastrointestinal Disorders or Hepatitis GENITOURINARY: Negative Genitourinary Disorders or Renal Disease REPRODUCTIVE: Positive Previous Pregnancies MUSCULOSKELETAL: Negative Musculoskeletal Disorders ENDOCRINE: Positive Endocrine Disorders; Negative Diabetes Mellitus Type 1 or Diabetes Mellitus Type 2 HEMATOLOGIC: Positive Blood Disorders and Clotting Problems; Negative Sickle Cell Disease PSYCHO/SOCIAL: Positive Anxiety and Depression OTHER HISTORY: Positive Hospitalization and Chicken Pox; Negative Autoimmune Disease, Blood Transfusions, Blood Transfusion Reaction, Anesthesia Reactions, MRSA, VRSA, Vancomycin-Resistant Enterococci, Human Immunodeficiency Virus (HIV), Measles, Mumps, Rubella (Vincentian Measles), Pertussis, Clostridium Difficile, Cancer or Lung Cancer Family History FAMILY HISTORY: Positive Family Cardiac Disorders and Family Cancer; Negative Family Psychiatric Problems, Family Respiratory Disorders, Family Gastrointestinal Problems, Family Surgery or Family Anesthesia Reaction Surgical History SURGICAL: Positive Throat Surgery and Section Social History SMOKING STATUS: Never smoker SECOND HAND EXPOSURE: No 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) ED Exam General Limitations: Present no limitations General appearance: Present alert and in no apparent distress Head Head exam: Present atraumatic Eye Eye exam: Present normal appearance, PERRL and EOMI ENT ENT exam: Present mucous membranes moist Expanded ENT Exam Teeth exam: Present dental caries, fractured tooth #, dental tenderness # and gingival swelling Neck Neck exam: Present normal inspection, full ROM and trachea midline Chest Chest inspection: Present normal inspection and symmetric chest wall rise Respiratory Respiratory exam: Present normal lung sounds bilaterally Cardiovascular Cardiovascular exam: Present regular rate, normal rhythm and normal heart sounds Abdominal Exam Abdominal exam: Present soft and normal bowel sounds Extremities Exam Extremities exam: Present normal inspection and full ROM Back Exam Back exam: Present normal inspection and full ROM Neurological Exam Neurological exam: Present alert, oriented X3 and CN II-XII intact Psychiatric Psychiatric exam: Present normal affect and normal mood Skin Skin exam: Present warm, dry, intact and normal color Course Quality Measures none Orders Category Date Time Status Dexamethasone Inj [Decadron Inj] Med 08/24/24 10:20 Discontinued 10 mg PO X1 ONE HYDROcodone*/APAP 5/325 [[place] 5/325] Med 08/24/24 10:18 Discontinued 1 tab PO X1 ONE Lidocaine 1% 20 ml [Xylocaine 1% 20 ML] Med 08/24/24 10:18 Discontinued 2.1 ml INFL X1 ONE cefTRIAXone [Rocephin] Med 08/24/24 10:18 Discontinued 1,000 mg IM X1 ONE Vital Signs Vital signs: Vital Signs Temperature 98.8 F 08/24/24 10:05 Pulse Rate 74 08/24/24 10:05 Respiratory Rate 18 08/24/24 10:05 Blood Pressure 153/101 H 08/24/24 10:05 Pulse Oximetry (%) 97 08/24/24 10:05 Oxygen Delivery Method Room Air 08/24/24 10:05 O2 saturation 97% on room air within normal limits Dental / Oral MDM Narrative MDM Narrative:: 39-year-old female presents to the emergency department today for complaints of infection tooth in the right lower jaw. Patient has associated swelling patient ports no fever nausea or vomiting no difficulty swallowing or breathing On exam patient has infection right lower gum/gingival swelling/infection at the dental site patient also has swelling to right cheek Patient was given Rocephin here discharged with Rocephin and [place] Explained to the patient she should return tomorrow for repeat Rocephin injection For emergent concerns patient struck to return immediately Patient data External records reviewed:: [facility] previous records Clinical information provided by:: patient Social determinants that could affect healthcare access:: none Patient has the following chronic illnesses:: None How is presenting disease/condition affected by chronic disease/condition?: no chronic disease Evaluation data The following diagnostics were reviewed and interpreted by me:: other (specify) Lab and/or radiology exams considered but not ordered:: Consider not ordered Interpretation Summary: And a Medications / Prescriptions Medications or Prescriptions considered but not ordered:: Given Medication administrations:: Medication Administration History Discontinued Medications Hydrocodone Bitart/Acetaminophen (Hydrocodone/Apap 5/325 Tablet) 1 tab PO X1 ONE Stop: 08/24/24 10:19 Last Admin: 08/24/24 11:06 Dose: 1 tab Documented By: MAINOR Ceftriaxone Sodium (Ceftriaxone Sod Inj 1,000 Mg Vial) 1,000 mg IM X1 ONE Stop: 08/24/24 10:19 Last Admin: 08/24/24 11:07 Dose: 1,000 mg Documented By: MAINOR Dexamethasone Sodium Phosphate (Dexamethasone Sod Phos Inj 10 Mg/Ml Vial) 10 mg PO X1 ONE Stop: 08/24/24 10:21 Last Admin: 08/24/24 11:10 Dose: 10 mg Documented By: MAINOR Lidocaine HCl (Lidocaine Hcl 1% 20 Ml Vial) 2.1 ml INFL X1 ONE Stop: 08/24/24 10:19 Last Admin: 08/24/24 11:07 Dose: 2.1 ml Documented By: MAINOR Given Consultations Consultation(s) initiated? (list below): No Diagnosis Dental Differential Diagnosis: gingival abscess, dental caries, toothache and dental abscess Most likely diagnosis given after review of the tests above:: Dental abscess Admission Indicated Admission indicated?: not indicated Admission Request Was there a request for admission?: No Disposition Plan Disposition Plan: Discharge Discharge Attestation Discharge Attestation: The patient and all family members were given an opportunity to ask questions and understood the discharge instructions. Discharge instructions specifically effects, indications for sooner follow up or return to the emergency department, and the expected course of current diagnosis. Patient condition: Stable Discharge Plan Plan Patient Disposition: HOME (Self Care) Disposition Comment: Stable Prescriptions/Referrals Prescriptions/Med Rec: New hydrocodone-acetaminophen 5-325 mg tablet 1 tab PO BID MDD 10 PRN (Reason: pain) Qty: 10 0RF clindamycin HCl 150 mg capsule 450 mg PO TID 7 Days Qty: 63 0RF ibuprofen 800 mg tablet 800 mg PO TID PRN (Reason: pain) Qty: 30 0RF No Action [id number]-FA 1 mg Tablet 1 tab PO QDAY enoxaparin 40 mg/0.4 mL syringe 40 ml subcut QDAY Patient Comments: INJECT contents of ONE pre-filled PEN SUBCUTANEOUSLY EVERY DAY doxycycline hyclate 100 mg capsule 100 mg PO BID Qty: 14 0RF phenazopyridine [Pyridium] 200 mg tablet 200 mg PO TID Qty: 6 0RF ibuprofen 800 mg tablet 800 mg PO TID PRN (Reason: pain) Qty: 30 0RF hydrocodone-acetaminophen 5-325 mg tablet 1 tab PO BID MDD 10 PRN (Reason: pain) Qty: 10 0RF amoxicillin-pot clavulanate 875-125 mg tablet 1 tab PO BID 7 Days Qty: 14 0RF acetaminophen 650 mg tablet extended release 650 mg PO Q12H PRN (Reason: fever or pain) Qty: 30 0RF acetaminophen-codeine 300-30 mg tablet 1 tab PO TID PRN (Reason: pain) Qty: 15 0RF Problem List Clinical Impression: Abscess, dental Patient/Caregiver Discharge Instructions Education Materials: ED Tooth Abscess Additional Instructions: Please return tomorrow for repeat Rocephin injection for worsening symptoms or concerns return immediately Print Language: Latvian Stand Alone Forms: Lisandra Award Info., Patient Portal Info Letter PA/FUSING MACHINE OPERATOR Supervising Physician PA/FUSING MACHINE OPERATOR Supervising Physician: Dr Miguel
== END 2024-08-24 11:14 | disposition home or self-care (01) ==
LOC: SERX 10:30
PROVIDERS: Emergency Provider Emergency Medicine; PCP Family Medicine
DX: K04.7 Periapical abscess without sinus (principal)
CPT/HCPCS: 96372; 99283; J0696; J1100; J3490; A9270

== ENCOUNTER 2024-08-25 08:51 | Emergency (ER) | payer MEDICAID, SELFPAY ==
[2024-08-25 08:52] VITALS: BMI 51.1
[2024-08-25 08:59] VITALS: BP 142/93; PULSE 51; RESP 16; TEMP 36.8; O2SAT 97
--- NOTE | 2024-08-25 09:09 | PD.EDADULT ---
ED General RME/HPI General Chief complaint: General Adult/Misc Complain Stated complaint: HERE YESTERDAY,TOLD TO COME TODAY FOR 2ND ATB SHOT Time Seen by Provider: 08/25/24 08:57 Source: patient Arrival date/time: 08/25/24 08:51 39-year-old female with no known medical history presents to the emergency room for her second dose of an antibiotic shot. Patient was seen yesterday in the emergency room for a dental abscess to her right lower molars. Patient states her swelling and pain has significantly decreased. Mode of arrival: ambulatory Limitations: no limitations Related Data Home Medications ?Medication ?Instructions ?Recorded ?Confirmed [id number] 1 mg 1 tab PO QDAY 01/16/22 04/08/22 tablet enoxaparin 40 mg/0.4 mL 40 ml subcut QDAY 03/01/22 04/08/22 subcutaneous syringe Previous Rx's ?Medication ?Instructions ?Recorded doxycycline hyclate 100 mg capsule 100 mg PO BID #14 caps 02/17/23 phenazopyridine 200 mg tablet 200 mg PO TID 6 doses #6 tabs 02/17/23 (Pyridium) hydrocodone 5 mg-acetaminophen 325 1 tab PO BID PRN pain #10 tabs 07/26/24 mg tablet ibuprofen 800 mg tablet 800 mg PO TID PRN pain #30 tabs 07/26/24 acetaminophen 650 mg 650 mg PO Q12H PRN fever or pain 08/20/24 tablet,extended release #30 tabs amoxicillin 875 mg-potassium 1 tab PO BID 7 days #14 tabs 08/20/24 clavulanate 125 mg tablet acetaminophen 300 mg-codeine 30 mg 1 tab PO TID PRN pain #15 tabs 08/21/24 tablet clindamycin HCl 150 mg capsule 450 mg (3 x 150 mg) PO TID 7 days 08/24/24 #63 caps hydrocodone 5 mg-acetaminophen 325 1 tab PO BID PRN pain #10 tabs 08/24/24 mg tablet ibuprofen 800 mg tablet 800 mg PO TID PRN pain #30 tabs 08/24/24 Allergies Allergy/AdvReac Type Severity Reaction Status Date / Time No Known Allergies Allergy Verified 08/25/24 08:55 Review of Systems Review of Systems Systems Reviewed: All systems reviewed, normal except as documented Constitutional Constitutional: Reports system reviewed and no additional complaints, except as documented, Denies fatigue, Denies fever(s), Denies headache(s) and Denies weakness Eyes Eyes: Reports system reviewed and no additional complaints, except as documented, Denies blurry vision and Denies change in vision ENT Ears, Nose, Mouth, and Throat: Reports system reviewed and no additional complaints, except as documented, Reports dental pain, Denies otalgia, Denies headache(s), Reports mouth pain, Denies nasal congestion, Denies throat swelling and Denies vertigo Cardiovascular Cardiovascular: Reports system reviewed and no additional complaints, except as documented, Denies chest pain, Denies dyspnea and Denies dyspnea on exertion Respiratory Respiratory: Reports system reviewed and no additional complaints, except as documented, Denies chest congestion, Denies cough, Denies dyspnea, Denies dyspnea on exertion and Denies wheezing Gastrointestinal Gastrointestinal: Reports system reviewed and no additional complaints, except as documented, Denies abdominal pain, Denies cramping, Denies nausea and Denies vomiting Genitourinary Genitourinary: Reports system reviewed and no additional complaints, except as documented Musculoskeletal Musculoskeletal: Reports system reviewed and no additional complaints, except as documented and Denies back pain Integumentary/Breasts Skin/Breast: Reports system reviewed and no additional complaints, except as documented and Denies wounds Neurologic Neurologic: Reports system reviewed and no additional complaints, except as documented, Denies confusion, Denies headache(s), Denies lack of coordination, Denies vertigo and Denies weakness Psychiatric Psychiatric: Reports system reviewed and no additional complaints, except as documented, Denies anxiety, Denies confusion, Denies depression, Denies paranoia, Denies suicidal ideation and Denies tactile hallucinations Endocrine Endocrine: Reports system reviewed and no additional complaints, except as documented and Denies fatigue Hematologic/Lymphatic Hematologic/Lymphatic: Reports system reviewed and no additional complaints, except as documented and Denies lymphadenopathy Allergic/Immunologic Allergic/Immunologic: Reports system reviewed and no additional complaints, except as documented, Denies throat swelling, Denies urticaria and Denies wheezing ED Exam General Limitations: Present no limitations General appearance: Present alert and in no apparent distress Head Head exam: Present atraumatic Eye Eye exam: Present normal appearance, PERRL and EOMI ENT ENT exam: Present normal exam, normal oropharynx and mucous membranes moist Expanded ENT Exam Mouth exam: Present normal external inspection and tongue normal; Absent drooling, trismus, lip swelling, tongue elevation, tongue swelling or laceration Teeth exam: Present dental tenderness # and gingival swelling Teeth numbered:  1. Dental Tenderness Throat exam: Present normal inspection Neck Neck exam: Present normal inspection, full ROM and trachea midline Chest Chest inspection: Present normal inspection and symmetric chest wall rise Respiratory Respiratory exam: Present normal lung sounds bilaterally Cardiovascular Cardiovascular exam: Present regular rate, normal rhythm and normal heart sounds Abdominal Exam Abdominal exam: Present soft and normal bowel sounds Extremities Exam Extremities exam: Present normal inspection and full ROM Back Exam Back exam: Present normal inspection and full ROM Neurological Exam Neurological exam: Present alert, oriented X3 and CN II-XII intact Psychiatric Psychiatric exam: Present normal affect and normal mood Skin Skin exam: Present warm, dry, intact and normal color Course Quality Measures none Orders Category Date Time Status cefTRIAXone [Rocephin] 1,000 mg Med 08/25/24 09:08 Discontinued Lidocaine 1% 20 ml [Xylocaine 1% 20 ML] 2.1 ml IM X1 Vital Signs Vital signs: Vital Signs Temperature 98.2 F 08/25/24 08:59 Pulse Rate 51 L 08/25/24 08:59 Respiratory Rate 16 08/25/24 08:59 Blood Pressure 142/93 H 08/25/24 08:59 Pulse Oximetry (%) 97 08/25/24 08:59 Oxygen Delivery Method Room Air 08/25/24 08:59 O2 saturation 97% within normal limits [facility] Patient data External records reviewed:: [facility] previous records Clinical information provided by:: patient Social determinants that could affect healthcare access:: none Patient has the following chronic illnesses:: No chronic illness How is presenting disease/condition affected by chronic disease/condition?: no chronic disease Evaluation data The following diagnostics were reviewed and interpreted by me:: lab results and radiology exam(s) Lab and/or radiology exams considered but not ordered:: Labs and radiology exams considered and ordered Interpretation Summary: N/A Medications Medications considered but not ordered:: Medication given Medication administrations:: Medication Administration History Discontinued Medications Ceftriaxone Sodium 1,000 mg/ (Lidocaine HCl 2.1 ml) 0 mg IM X1 ONE Stop: 08/25/24 09:09 Last Admin: 08/25/24 09:26 Dose: 1,000 mg Documented By: BD Medication given Consultations Consultation(s) initiated? (list below): No Diagnosis Differential Diagnosis ED Complaint MDM: Dental pain/dental abscess/gingivitis/allergic reaction Most likely diagnosis given after review of the tests above:: Dental abscess Admission Indicated Admission indicated?: not indicated Explain why admission is indicated or not indicated:: N/A Admission Request Was there a request for admission?: No Disposition Plan Disposition Plan: Discharge Discharge Attestation Discharge Attestation: The patient and all family members were given an opportunity to ask questions and understood the discharge instructions. Discharge instructions specifically effects, indications for sooner follow up or return to the emergency department, and the expected course of current diagnosis. Patient condition: Stable Medical Decision Making MDM Narrative MDM Narrative: 39-year-old female with no known medical history presents to the emergency room for her second dose of an antibiotic shot. Patient was seen yesterday in the emergency room for a dental abscess to her right lower molars. Patient states her swelling and pain has significantly decreased. Patient is hemodynamically stable and in no apparent distress. Patient is not tachypneic tachycardic afebrile and her O2 saturation is 97% on room air Physical examination shows dental tenderness to the right lower molars. There is a dental abscess, gingival swelling and tenderness to the right lower back teeth. Patient states she has made an appointment with her dentist already and has an appointment with the primary care provider today at 3 PM. Patient states that she was seen here yesterday and her symptoms have significantly improved. Patient states her pain is less and the swelling around her neck and mouth is almost gone. The second shot of antibiotics were given Patient was discharged and educated to follow-up with primary care provider in the next 24 to 48 hours and return to the emergency room for any evidence of worsening signs or symptoms Differential Diagnosis Differential Diagnosis: Dental pain/dental abscess/gingivitis/allergic reaction Discharge Plan Plan Patient Disposition: HOME (Self Care) Disposition Comment: Stable Prescriptions/Referrals Prescriptions/Med Rec: No Action rovfbkko-zln-[id number]-FA 1 mg Tablet 1 tab PO QDAY enoxaparin 40 mg/0.4 mL syringe 40 ml subcut QDAY Patient Comments: INJECT contents of ONE pre-filled PEN SUBCUTANEOUSLY EVERY DAY doxycycline hyclate 100 mg capsule 100 mg PO BID Qty: 14 0RF phenazopyridine [Pyridium] 200 mg tablet 200 mg PO TID Qty: 6 0RF ibuprofen 800 mg tablet 800 mg PO TID PRN (Reason: pain) Qty: 30 0RF hydrocodone-acetaminophen 5-325 mg tablet 1 tab PO BID MDD 10 PRN (Reason: pain) Qty: 10 0RF amoxicillin-pot clavulanate 875-125 mg tablet 1 tab PO BID 7 Days Qty: 14 0RF acetaminophen 650 mg tablet extended release 650 mg PO Q12H PRN (Reason: fever or pain) Qty: 30 0RF acetaminophen-codeine 300-30 mg tablet 1 tab PO TID PRN (Reason: pain) Qty: 15 0RF hydrocodone-acetaminophen 5-325 mg tablet 1 tab PO BID MDD 10 PRN (Reason: pain) Qty: 10 0RF clindamycin HCl 150 mg capsule 450 mg PO TID 7 Days Qty: 63 0RF ibuprofen 800 mg tablet 800 mg PO TID PRN (Reason: pain) Qty: 30 0RF Problem List Clinical Impression: Abscess, dental Patient/Caregiver Discharge Instructions Education Materials: Dental Abscess, ED Dental Abscess Additional Instructions: Please follow-up with your primary care provider in the next 24 to 48 hours Please continue to take the antibiotics that were prescribed to you yesterday. For any evidence of worsening signs or symptoms return to the emergency room immediately Print Language: Egyptian Stand Alone Forms: Lisandra Award Info., Work/School Release, Patient Portal Info Letter VESNA/KAI Supervising Physician VESNA/KAI Supervising Physician: Dr Miguel
[2024-08-25] MEDS: cefTRIAXone 1,000 MG, LIDOCAINE 1% 20 ML 2.1 ML IM (09:26)
== END 2024-08-25 09:38 | disposition home or self-care (01) ==
LOC: SERX 09:42
PROVIDERS: Emergency Provider Emergency Medicine
DX: K04.7 Periapical abscess without sinus (principal)
CPT/HCPCS: 96372; 99283; J0696; J3490

== ENCOUNTER 2024-11-09 06:52 | Emergency (ER) | payer MEDICAID, SELFPAY ==
[2024-11-09 06:54] VITALS: BMI 51.6
--- NOTE | 2024-11-09 06:56 | EKG_ITS ---
[facility] Test Date: 2024-11-09 Pat Name: TAMIR FOWLER Department: Room: - Gender: Female Toucher Up: : 1985 Requested By: ED Temporary Provider Order Number: [id number] Reading MD: ED Temporary Provider Measurements Intervals [place] Rate: 65 P: 35 FL: 125 QRS: 34 QRSD: 105 T: 43 QT: 428 QTc: 445 Interpretive Statements SINUS RHYTHM WITH FREQUENT VENTRICULAR PREMATURE COMPLEXES ABNORMAL RHYTHM ECG Compared to ECG 01/19/2020 16:43:26 Ventricular premature complex(es) now present Sinus bradycardia no longer present /store/S0/[id number]
[2024-11-09 06:59] VITALS: BP 140/70; PULSE 61; RESP 17; TEMP 36.7; O2SAT 97
--- NOTE | 2024-11-09 07:12 | XR_ITS ---
Examination: PA lateral chest 2 views TECHNIQUE: Upright PA and lateral chest 2 views Date and time: November 09, 2024 0715 hours INDICATIONS: Acute chest pain today FINDINGS: Normal heart size Lungs are clear The osseous structures are intact IMPRESSION: No active disease
--- NOTE | 2024-11-09 07:12 | PD.EDCHEST ---
ED Chest Pain RME/HPI General Chief Complaint: Chest Pain Stated Complaint: RIGHT CHEST AREA PAIN RADIATING TO RIGHT ARM Time Seen by Provider: 11/09/24 07:06 Source: patient Arrival date/time: 11/09/24 06:52 39-year-old female with no known medical history presents to the emergency room with a chief complaint of 8 out of 10 sternal chest pain that radiates down to her right side and right arm that began today at 1 AM. Mode of arrival: ambulatory Limitations: no limitations Related Data Home Medications ?Medication ?Instructions ?Recorded ?Confirmed [id number] 1 mg 1 tab PO QDAY 01/16/22 04/08/22 tablet enoxaparin 40 mg/0.4 mL 40 ml subcut QDAY 03/01/22 04/08/22 subcutaneous syringe Previous Rx's ?Medication ?Instructions ?Recorded doxycycline hyclate 100 mg capsule 100 mg PO BID #14 caps 02/17/23 phenazopyridine 200 mg tablet 200 mg PO TID 6 doses #6 tabs 02/17/23 (Pyridium) hydrocodone 5 mg-acetaminophen 325 1 tab PO BID PRN pain #10 tabs 07/26/25 mg tablet ibuprofen 800 mg tablet 800 mg PO TID PRN pain #30 tabs 25 acetaminophen 650 mg 650 mg PO Q12H PRN fever or pain 08/20/24 tablet,extended release #30 tabs acetaminophen 300 mg-codeine 30 mg 1 tab PO TID PRN pain #15 tabs 08/21/24 tablet hydrocodone 5 mg-acetaminophen 325 1 tab PO BID PRN pain #10 tabs 25 mg tablet ibuprofen 800 mg tablet 800 mg PO TID PRN pain #30 tabs 08/24/24 Allergies Allergy/AdvReac Type Severity Reaction Status Date / Time No Known Allergies Allergy Verified 08/25/24 08:55 Review of Systems Review of Systems Systems Reviewed: All systems reviewed, normal except as documented Constitutional Constitutional: Reports system reviewed and no additional complaints, except as documented, Denies fatigue, Denies fever(s), Denies headache(s) and Denies weakness Eyes Eyes: Reports system reviewed and no additional complaints, except as documented, Denies blurry vision and Denies change in vision ENT Ears, Nose, Mouth, and Throat: Reports system reviewed and no additional complaints, except as documented, Denies otalgia, Denies headache(s), Denies nasal congestion, Denies throat swelling and Denies vertigo Cardiovascular Cardiovascular: Reports system reviewed and no additional complaints, except as documented, Reports chest pain, Reports chest pain at rest, Reports chest pain with activity, Reports dyspnea and Denies dyspnea on exertion Respiratory Respiratory: Reports system reviewed and no additional complaints, except as documented, Denies chest congestion, Denies cough, Reports dyspnea, Denies dyspnea on exertion and Denies wheezing Gastrointestinal Gastrointestinal: Reports system reviewed and no additional complaints, except as documented, Denies abdominal pain, Denies cramping, Denies nausea and Denies vomiting Genitourinary Genitourinary: Reports system reviewed and no additional complaints, except as documented Musculoskeletal Musculoskeletal: Reports system reviewed and no additional complaints, except as documented and Denies back pain Integumentary/Breasts Skin/Breast: Reports system reviewed and no additional complaints, except as documented and Denies wounds Neurologic Neurologic: Reports system reviewed and no additional complaints, except as documented, Denies confusion, Denies headache(s), Denies lack of coordination, Denies vertigo and Denies weakness Psychiatric Psychiatric: Reports system reviewed and no additional complaints, except as documented, Denies anxiety, Denies confusion, Denies depression, Denies paranoia, Denies suicidal ideation and Denies tactile hallucinations Endocrine Endocrine: Reports system reviewed and no additional complaints, except as documented and Denies fatigue Hematologic/Lymphatic Hematologic/Lymphatic: Reports system reviewed and no additional complaints, except as documented and Denies lymphadenopathy Allergic/Immunologic Allergic/Immunologic: Reports system reviewed and no additional complaints, except as documented, Denies throat swelling, Denies urticaria and Denies wheezing Past Medical History Past Medical History NEUROLOGIC: Negative Neurological Disorders or Seizures CARDIAC: Negative Cardiac Disorders, Myocardial Infarction or Congestive Heart Failure RESPIRATORY: Negative Chronic Obstructive Pulmonary Disease (COPD) or Asthma GASTROINTESTINAL: Positive Obesity; Negative Gastrointestinal Disorders or Hepatitis GENITOURINARY: Negative Genitourinary Disorders or Renal Disease REPRODUCTIVE: Positive Previous Pregnancies MUSCULOSKELETAL: Negative Musculoskeletal Disorders ENDOCRINE: Positive Endocrine Disorders; Negative Diabetes Mellitus Type 1 or Diabetes Mellitus Type 2 HEMATOLOGIC: Positive Blood Disorders and Clotting Problems; Negative Sickle Cell Disease PSYCHO/SOCIAL: Positive Anxiety and Depression OTHER HISTORY: Positive Hospitalization and Chicken Pox; Negative Autoimmune Disease, Blood Transfusions, Blood Transfusion Reaction, Anesthesia Reactions, MRSA, VRSA, Vancomycin-Resistant Enterococci, Human Immunodeficiency Virus (HIV), Measles, Mumps, Rubella (Nigerien Measles), Pertussis, Clostridium Difficile, Cancer or Lung Cancer Family History FAMILY HISTORY: Positive Family Cardiac Disorders and Family Cancer; Negative Family Psychiatric Problems, Family Respiratory Disorders, Family Gastrointestinal Problems, Family Surgery or Family Anesthesia Reaction Surgical History SURGICAL: Positive Throat Surgery and Section Social History SMOKING STATUS: Never smoker SECOND HAND EXPOSURE: No 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) ED Exam General Limitations: Present no limitations General appearance: Present alert and in no apparent distress Head Head exam: Present atraumatic Eye Eye exam: Present normal appearance, PERRL and EOMI ENT ENT exam: Present normal exam, normal oropharynx and mucous membranes moist Neck Neck exam: Present normal inspection, full ROM and trachea midline Chest Chest inspection: Present normal inspection and symmetric chest wall rise Respiratory Respiratory exam: Present normal lung sounds bilaterally; Absent respiratory distress, wheezes, stridor, accessory muscle use or prolonged expiratory phase Cardiovascular Cardiovascular exam: Present regular rate, normal rhythm, normal heart sounds, +S1 and +S2; Absent bradycardia, tachycardia or irregular rhythm Abdominal Exam Abdominal exam: Present soft and normal bowel sounds; Absent tenderness Extremities Exam Extremities exam: Present normal inspection and full ROM Back Exam Back exam: Present normal inspection and full ROM Neurological Exam Neurological exam: Present alert, oriented X3 and CN II-XII intact Psychiatric Psychiatric exam: Present normal affect and normal mood Skin Skin exam: Present warm, dry, intact and normal color Course Quality Measures none Orders Category Date Time Status EKG (ED ONLY) *Do not use* NOW Care 11/09/24 06:57 Completed EKG (ED Only) Stat Exams 11/09/24 06:56 Draft XR chest 2V Stat Exams 11/09/24 07:12 Completed B-Type Natriuretic Peptide Stat Lab 11/09/24 07:27 Completed CBC Stat Lab 11/09/24 07:27 Completed Comprehensive Metabolic Panel Stat Lab 11/09/24 07:27 Completed Drug Screen,Urine Stat Lab 11/09/24 08:10 Received Magnesium Stat Lab 11/09/24 07:27 Completed Troponin I Stat Lab 11/09/24 07:27 Completed Urinalysis Stat Lab 11/09/24 08:10 Received Vital Signs Vital signs: Vital Signs Temperature 98.0 F 11/09/24 06:59 Pulse Rate 61 11/09/24 06:59 Respiratory Rate 17 11/09/24 06:59 Blood Pressure 140/70 H 11/09/24 06:59 Pulse Oximetry (%) 97 11/09/24 06:59 Oxygen Delivery Method Room Air 11/09/24 06:59 Procedures -ED EKG Interpretation #1: Date of EK11/09/24 Rate: 65 Interpretation: Reviewed by me EKG Impression: Normal sinus rhythm Chest Pain MDM Narrative MDM Narrative:: 39-year-old female with no known medical history presents to the emergency room with a chief complaint of 8 out of 10 sternal chest pain that radiates down to her right side and right arm that began today at 1 AM. Patient is hemodynamically stable and in no apparent distress Physical examination shows clear bilateral lung sounds there is no wheezing or any abnormal breath sounds. The patient has a strong and regular rhythm S1 and S2 noted EKG was completed and shows normal sinus rhythm at [address] deviation. CBC CMP and troponin were all negative Chest x-ray was negative for any pneumonic infiltrates Patient was discharged and educated to follow-up with primary care provider in the next 24 to 48 hours and return to the emergency room for any evidence of worsening signs or symptoms Patient data External records reviewed:: [facility] previous records Clinical information provided by:: patient Social determinants that could affect healthcare access:: none Patient has the following chronic illnesses:: No chronic illness How is presenting disease/condition affected by chronic disease/condition?: no chronic disease Evaluation data The following diagnostics were reviewed and interpreted by me:: lab results and radiology exam(s) Lab and/or radiology exams considered but not ordered:: Labs and radiology exams considered and ordered Interpretation Summary: Chest [id number]: Normal heart size Lungs are clear The osseous structures are intact IMPRESSION: No active disease Medications / Prescriptions Medications or Prescriptions considered but not ordered:: No medication given Medication administrations:: No medication given Consultations Consultation(s) initiated? (list below): No Diagnosis Chest Pain Differential Diagnosis: pneumothorax, stable angina, unstable angina pectoris, atypical chest pain, st elevation myocardial infarction, costochondritis and chest pain Most likely diagnosis given after review of the tests above:: Chest pain Admission Indicated Admission indicated?: not indicated Admission Request Was there a request for admission?: No Disposition Plan Disposition Plan: Discharge Discharge Attestation Discharge Attestation: The patient and all family members were given an opportunity to ask questions and understood the discharge instructions. Discharge instructions specifically effects, indications for sooner follow up or return to the emergency department, and the expected course of current diagnosis. Patient condition: Stable Discharge Plan Plan Patient Disposition: HOME (Self Care) Discharge Disposition comment: Stable Prescriptions/Referrals Prescriptions/Med Rec: No Action smkclakk-yas-Zt-FA 1 mg Tablet 1 tab PO QDAY enoxaparin 40 mg/0.4 mL syringe 40 ml subcut QDAY Patient Comments: INJECT contents of ONE pre-filled PEN SUBCUTANEOUSLY EVERY DAY doxycycline hyclate 100 mg capsule 100 mg PO BID Qty: 14 0RF phenazopyridine [Pyridium] 200 mg tablet 200 mg PO TID Qty: 6 0RF ibuprofen 800 mg tablet 800 mg PO TID PRN (Reason: pain) Qty: 30 0RF hydrocodone-acetaminophen 5-325 mg tablet 1 tab PO BID MDD 10 PRN (Reason: pain) Qty: 10 0RF acetaminophen 650 mg tablet extended release 650 mg PO Q12H PRN (Reason: fever or pain) Qty: 30 0RF acetaminophen-codeine 300-30 mg tablet 1 tab PO TID PRN (Reason: pain) Qty: 15 0RF hydrocodone-acetaminophen 5-325 mg tablet 1 tab PO BID MDD 10 PRN (Reason: pain) Qty: 10 0RF ibuprofen 800 mg tablet 800 mg PO TID PRN (Reason: pain) Qty: 30 0RF Referrals: Tim Thomas MD [Primary Care Provider] - In 1 week Problem List Clinical Impression: Chest pain Patient/Caregiver Discharge Instructions Education Materials: ED Chest Pain, Noncardiac Additional Instructions: Please follow-up with your primary care provider in the next 24 to 48 hours Your cardiac examination and workup was negative for any acute findings. At this time your chest pain is noncardiac in nature. Please follow-up with your primary care provider for further workup. Your chest x-ray was negative for any pneumonia For any evidence of worsening signs or symptoms return to the emergency room immediately Print Language: Wolof Stand Alone Forms: Lisandra Award Info., Work/School Release, Patient Portal Info Letter PA/WARD SERVICE SUPERVISOR Supervising Physician PA/WARD SERVICE SUPERVISOR Supervising Physician: Dr. Wyman
[2024-11-09 07:35] LABS: Basophils # (Auto) 0.1 Thou/mm3 (0.0-0.2); Basophils % (Auto) 1 % (0-2.5); Eosinophils # (Auto) 0.2 Thou/mm3 (0.0-0.5); Eosinophils % (Auto) 2 % (0-10); Hematocrit 38.9 % (36.0-46.0); Hemoglobin 13.2 g/dL (12.0-16.0); Immature Granulocytes % (Auto) 1 % (0-0); Immature Granulocytes Auto 0.05 Thou/mm3 (0.00-0.00); Lymphocytes # (Auto) 2.5 Thou/mm3 (1.0-4.8); Lymphocytes % (Auto) 23 % (10-50); Mean Corpuscular HGB Conc 33.9 g/dl (31.0-37.0); Mean Corpuscular Volume 77 fL (80-100); Monocytes # (Auto) 0.6 Thou/mm3 (0.0-0.8); Monocytes % (Auto) 5 % (0-12); Neutrophils # (Auto) 7.5 Thou/mm3 (1.8-7.7); Neutrophils % (Auto) 69 % (37-80); Nucleated Red Blood Cell % 0 /100 WBC (0); Platelet Count 247 Thou/mm3 (140-440); RDW Standard Deviation 38.1 fL (36.4-46.3); Red Blood Count 5.08 Miln/mm3 (4.00-5.20); White Blood Count 10.9 Thou/mm3 (3.6-11.0)
[2024-11-09 07:52] LABS: Alanine Aminotransferase 13 U/L (10-49); Albumin/Globulin Ratio 1.6 (1.2-2.2); Alkaline Phosphatase 67 U/L (46-116); Anion Gap 8 (7-16); BUN/Creatinine Ratio 17 Ratio (12-20); Bilirubin,Total 0.4 mg/dL (0.3-1.2); Blood Urea Nitrogen 10 mg/dL (9-23); Calcium 8.9 mg/dL (8.3-10.6); Calcium (Corrected) 8.9 mg/dL (8.5-10.1); Carbon Dioxide 27.1 mMol/L (20.0-31.0); Chloride 106 mMol/L (98-107); Creatinine (Component) 0.6 mg/dL (0.6-1.3); Estimated Creatinine Clearance 187.9 mL/min (>60); Globulin 2.5 gm/dL (2.3-3.5); Glucose 113 mg/dL (74-106); Magnesium 1.9 mg/dL (1.6-2.6); Osmolality,Calculated 281 (275-295); Potassium 4.2 mMol/L (3.4-5.1); Sodium 141 mMol/L (136-145); Total Protein 6.5 gm/dL (5.7-8.2); Troponin I < 0.002 ng/mL (0.0-0.045); eGFR > 60 See Note
[2024-11-09 08:00] LABS: B-Type Natriuretic Peptide 37 pg/mL (0-100)
[2024-11-09 08:23] LABS: Collection Type, Urine Clean Catch
[2024-11-09 08:32] VITALS: BP 141/91; PULSE 61; RESP 16; TEMP 36.6; O2SAT 98
[2024-11-09 08:36] LABS: Bilirubin,Urine Negative (Negative); Blood,Urine Negative (Negative); Clarity,Urine Clear (Clear/Hazy); Color,Urine Lt-Yellow (Lt Yel-Yel); Glucose, Urine Negative (Negative); Ketones,Urine Negative (Negative); Leukocyte Esterase,Urine Negative (Negative); Nitrite,Urine Negative (Negative); PH,Urine 7.5 (5.0-7.0); Protein,Urine Negative (Neg - Trace); RBC,Urine 1 /hpf (0-3); Specific Gravity,Urine 1.022 (1.001-1.035); Squamous Epithelial Cell,Urine 10 /hpf (0-5); Urobilinogen,Urine Negative mg/dL (0.0-1.0); WBC,Urine 2 /hpf (0-5)
[2024-11-09 08:54] LABS: Amphetamine/Methamp Scrn,U Negative (Negative); Barbiturate Screen,Urine Negative (Negative); Benzodiazepines Screen,Urine Negative (Negative); Benzoylecgonine Screen, Ur Negative (Negative); Fentanyl Screen,Urine Negative (Negative); Opiate Screen,Urine Negative (Negative); THC Screen,Urine Positive (Negative)
== END 2024-11-09 08:36 | disposition home or self-care (01) ==
PROVIDERS: Nurse Practitioner Family; Emergency Provider Family Medicine; PCP Family Medicine
DX: R07.9 Chest pain, unspecified (principal); I49.3 Ventricular premature depolarization
CPT/HCPCS: 36415; 71046; 80053; 80307; 81001; 83735; 83880; 84484; 85025; 93005; 99283

== ENCOUNTER 2025-01-27 08:37 | Emergency (ER) | payer MEDICAID, SELFPAY ==
[2025-01-27 08:54] VITALS: BP 128/88; PULSE 78; RESP 17; TEMP 37.1; O2SAT 98
--- NOTE | 2025-01-27 09:03 | XR_ITS ---
Examination: CT abdomen and pelvis without contrast. Coronal 3-D reconstructions. Sagittal 2-D reconstructions. Date and time of exam:January 19, 2025 1033 hrs. Indications: Lower abdominal pain radiating to left flank and constipation beginning 5 days ago. Comparison: July 26, 2024 CTDI: vol (mGy): 22.6 DLP: (mGycm): 1490 Technique: Axial images of the abdomen have been obtained, 3 mm slice thickness Intravenous contrast material has not been administered. Low dose protocols were performed. One or more of the following dose reduction techniques were used; automated exposure control, adjustment of the mA and/or KV according to patient size, use of iterative reconstruction technique. Findings: Hepatomegaly 23 cm, splenomegaly 14 cm Gallstones No pancreatic mass Bilateral renal scar formation, 10 mm lower pole left renal cysts, no renal or ureteral calculi, no hydronephrosis Aorta is not enlarged 10 mm fat-containing umbilical hernia Normal appendix 11 cm fat-containing pelvic hernia, containing small bowel but no incarcerated bowel Urinary bladder intact Anteverted uterus Impression: Hepatosplenomegaly Cholelithiasis Mild to moderate bilateral renal parenchymal scar formation. 10 mm fat-containing umbilical hernia. Normal appendix. 11 cm pelvic hernia which contains small bowel but no incarcerated bowel
--- NOTE | 2025-01-27 09:04 | PD.EDRME ---
Rapid Medical Screening Exam RME Arrival date/time: 01/27/25 08:37 39-year-old female presents emergency department with complaints of abdominal pain back pain and loose stools Chief Complaint: Abdominal Pain Time Seen by Provider: 01/27/25 08:47 Vital signs: Vital Signs Temperature 98.7 F 01/27/25 08:54 Pulse Rate 78 01/27/25 08:54 Respiratory Rate 17 01/27/25 08:54 Blood Pressure 128/88 H 01/27/25 08:54 Pulse Oximetry (%) 98 01/27/25 08:54 Oxygen Delivery Method Room Air 01/27/25 08:54
[2025-01-27 09:26] LABS: Collection Type, Urine Clean Catch
[2025-01-27 09:30] LABS: Basophils # (Auto) 0.0 Thou/mm3 (0.0-0.2); Basophils % (Auto) 0 % (0-2.5); Eosinophils # (Auto) 0.1 Thou/mm3 (0.0-0.5); Eosinophils % (Auto) 1 % (0-10); Hematocrit 41.2 % (36.0-46.0); Hemoglobin 13.1 g/dL (12.0-16.0); Immature Granulocytes Auto 0.03 Thou/mm3 (0.00-0.00); Lymphocytes # (Auto) 1.9 Thou/mm3 (1.0-4.8); Lymphocytes % (Auto) 22 % (10-50); Mean Corpuscular HGB Conc 31.8 g/dl (31.0-37.0); Mean Corpuscular Hemoglobin 25.5 pg (25.0-35.0); Mean Corpuscular Volume 80 fL (80-100); Monocytes # (Auto) 0.5 Thou/mm3 (0.0-0.8); Monocytes % (Auto) 6 % (0-12); Neutrophils # (Auto) 5.9 Thou/mm3 (1.8-7.7); Neutrophils % (Auto) 70 % (37-80); Nucleated Red Blood Cell # 0.00 Thou/mm3 (0.00-0.00); Nucleated Red Blood Cell % 0 /100 WBC (0); Platelet Count 331 Thou/mm3 (140-440); RDW Standard Deviation 41.6 fL (36.4-46.3); Red Blood Count 5.14 Miln/mm3 (4.00-5.20); White Blood Count 8.5 Thou/mm3 (3.6-11.0)
[2025-01-27] MEDS: IBUPROFEN TAB 400 MG TABLET 800 MG PO (09:41)
[2025-01-27 09:53] LABS: Alanine Aminotransferase 16 U/L (10-49); Albumin, Serum 4.2 gm/dL (3.5-5.0); Albumin/Globulin Ratio 1.8 (1.2-2.2); Alkaline Phosphatase 52 U/L (46-116); Anion Gap 9 (7-16); Aspartate Amino Transferase 14 U/L (0-34); BUN/Creatinine Ratio 7 Ratio (12-20); Bilirubin,Total 0.7 mg/dL (0.3-1.2); Blood Urea Nitrogen 5 mg/dL (9-23); Calcium 9.6 mg/dL (8.3-10.6); Calcium (Corrected) 9.6 mg/dL (8.5-10.1); Carbon Dioxide 29.2 mMol/L (20.0-31.0); Chloride 106 mMol/L (98-107); Creatinine (Component) 0.7 mg/dL (0.6-1.3); Globulin 2.3 gm/dL (2.3-3.5); Glucose 91 mg/dL (74-106); Lipase 24 U/L (12-53); Osmolality,Calculated 284 (275-295); Potassium 4.0 mMol/L (3.4-5.1); Sodium 144 mMol/L (136-145); Total Protein 6.5 gm/dL (5.7-8.2); eGFR > 60 See Note
[2025-01-27 09:54] LABS: Amorphous Crystals,Urine Present (Absent); Bilirubin,Urine Negative (Negative); Blood,Urine 3+ (Negative); Culture Indicated,Urine Contaminated; Glucose, Urine Negative (Negative); Ketones,Urine Trace (Negative); Leukocyte Esterase,Urine Positive (Negative); Nitrite,Urine Positive (Negative); PH,Urine 6.5 (5.0-7.0); Protein,Urine 1+ (Neg - Trace); RBC,Urine 1066 /hpf (0-3); Specific Gravity,Urine 1.015 (1.001-1.035); Squamous Epithelial Cell,Urine 11 /hpf (0-5); Urobilinogen,Urine Negative mg/dL (0.0-1.0); WBC,Urine 596 /hpf (0-5)
[2025-01-27 09:56] LABS: HCG Qualitative,Urine Negative
[2025-01-27 10:55] LABS: Clarity,Urine Cloudy (Clear/Hazy); Color,Urine Lt-Yellow (Lt Yel-Yel)
--- NOTE | 2025-01-27 12:07 | EDNOTE_ITS ---
ED Abdominal Pain RME/HPI General Chief Complaint: Abdominal Pain Stated complaint: Constipation X 5 days, 2 hernia's Time seen by provider: 01/27/25 08:47 Arrival date/time: 01/27/25 08:37 RME / HPI RME / HPI narrative: 39-year-old female patient came in for evaluation regarding pelvic pain and lower abdominal pain. This been ongoing for the last 5 days, severity moderate. Patient complaining of no bowel movement/constipation for the last 5 days. No vomiting no fever no other complaints noted. Patient is currently on 2 medications of lost weight and for possible hernia repair in the pelvic area if the patient would lost weight. Patient been taking MiraLAX, for the last 3 days with no relief of constipation. Related Data Home Medications ?Medication ?Instructions ?Recorded ?Confirmed vzazvafq-lzy-Gr-FA 1 mg 1 tab PO QDAY 2 04/08/22 tablet enoxaparin 40 mg/0.4 mL 40 ml subcut QDAY 03/01/22 1 06/08/21 subcutaneous syringe Previous Rx's ?Medication ?Instructions ?Recorded doxycycline hyclate 100 mg capsule 100 mg PO BID #14 c aps 02/17/23 phenazopyridine 200 mg tablet 200 mg PO TID 6 doses #6 tabs 02/17/23 (Pyridium) hydrocodone 5 mg-acetaminophen 325 1 tab PO BID PRN pa in #10 tabs 07/26/24 mg tablet ibuprofen 800 mg tablet 800 mg PO TID PRN pain #30 t abs 07/26/24 acetaminophen 650 mg 650 mg PO Q12H PRN fever or pain 08/20/24 tablet,extended release #30 tabs acetaminophen 300 mg-codeine 30 mg 1 tab PO TID PRN pa in #15 tabs 08/21/24 tablet hydrocodone 5 mg-acetaminophen 325 1 tab PO BID PRN pa in #10 tabs 08/24/24 mg tablet ibuprofen 800 mg tablet 800 mg PO TID PRN pain #30 t abs 08/24/24 cefuroxime axetil 500 mg tablet 500 mg PO BID #14 tabs 01/27/25 peg 3350-electrolytes 236 240 ml PO Q10M #4,000 mL gram-22.74 gram-6.74 gram-5.86 gram solution (Golytely) Allergies Allergy/AdvReac Type Severity Reaction Status Date / Time No Known Allergies Allergy Verified 01/27/25 08:43 Review of Systems Review of Systems Narrative Review of Systems: Review of system reviewed and within normal limits except mentioned in HPI ED Exam Narrative Physical exam: VITAL SIGNS: Reviewed. GENERAL APPEARANCE: Alert and interactive, follows commands, no acute distress, morbidly obese HEAD AND FACE: Non-traumatic. ENT: PERRL, pink conjunctivitis, eyelid no trauma, Mucous membrane moist. NECK: Supple, nontender, no nuchal rigidity. CHEST: No tenderness, no crepitus, no paradoxical movement, no retractions. LUNGS: Clear, well ventilated, symmetric, no rales, no wheezing, no ronchi, no stridor, good breath sounds bilaterally. HEART: Regular rate, regular rhythm, no murmur, no gallops. ABDOMEN: Soft, positive bowel sounds, nondistended, no guarding, nontender, no rebound, no masses, palpable pelvic hernia noted nontender RECTAL: Deferred. GENITAL: Deferred. NEUROLOGICAL: Gross motor function intact sensory function intact, Appropriate for age. MUSCULOSKELETAL: low back nontender, full range of motion. EXTREMITIES: Nontender, full range of motion. SKIN: Color pink, dry, no rash, no lacerations, no abrasions, no contusions. LYMPHATICS: Deferred. Course Quality Measures none Orders Category Date Time Status CT abdomen pelvis wo con Stat Exams 01/27/25 09:03 Completed CBC Stat Lab 01/27/25 09:15 Completed Comprehensive Metabolic Panel Stat Lab 01/27/25 09:15 Completed HCG Qualitative,Urine Stat Lab 01/27/25 09:13 Completed Lipase Stat Lab 01/27/25 09:15 Completed UA, C/S IF [Urinalysis, C/S if Indicated] Stat Lab 01/27/25 09:13 Completed Ibuprofen Tab [Motrin Tab] Med 01/27/25 09:03 Discontinued 800 mg PO X1 ONE Vital Signs Vital signs: Vital Signs Temperature 98.7 F 01/27/25 08:54 Pulse Rate 78 01/27/25 08:54 Respiratory Rate 17 01/27/25 08:54 Blood Pressure 128/88 H 01/27/25 08:54 Pulse Oximetry (%) 98 01/27/25 08:54 Oxygen Delivery Method Room Air 01/27/25 08:54 Abdominal Pain MDM MDM Narrative MDM Narrative:: 39-year-old female patient came in for evaluation regarding pelvic pain and lower abdominal pain. This been ongoing for the last 5 days, severity moderate. Patient complaining of no bowel movement/constipation for the last 5 days. No vomiting no fever no other complaints noted. Patient is currently on 2 medications of lost weight and for possible hernia repair in the pelvic area if the patient would lost weight. Patient been taking MiraLAX, for the last 3 days with no relief of constipation. Laboratory workup significant for UTI otherwise unremarkable. Patient CT scan of the abdomen showed cholelithiasis with no sign of acute cholecystitis. Pelvic hernia with small bowel noted in it however there is no incarceration noted. Also noted a small umbilical hernia. Currently patient is not any vomiting no fever. Patient was advised to closely follow-up with PCP and for repair of the general surgeon. Patient was prescribed home on GoLytely and antibiotic for UTI Patient appears nontoxic and hemodynamically stable .Decision to discharge the patient. The patient/family was given an opportunity to ask questions and understood their discharge instructions. Discharge instructions specifically included follow up provider and time frame, current and/or new medications and possible side effects, indications for sooner follow up or return to the [facility], and the expected course of current diagnosis. Patient reports feeling better as well and giving evidence of significant clinical improvement, I believe patient is now a candidate for discharge. Patient data External records reviewed:: None Clinical information provided by:: patient Social determinants that could affect healthcare access:: none Patient has the following chronic illnesses:: Morbid obesity How is presenting disease/condition affected by chronic disease/condition?: exacerbated by Evaluation data The following diagnostics were reviewed and interpreted by me:: lab results and radiology exam(s) Lab and/or radiology exams considered but not ordered:: None Interpretation Summary: None see results [facility] Medications / Prescriptions Medications or Prescriptions considered but not ordered:: none Medication administrations:: Medication Administration History Discontinued Medications Ibuprofen (Ibuprofen Tab 400 Mg Tablet) 800 mg PO X1 ONE Stop: 01/27/25 09:04 Last Admin: 01/27/25 09:41 Dose: 800 mg Documented By: ED Motrin Consultations Consultation(s) initiated? (list below): No Diagnosis Differential diagnosis abdominal pain: abdominal pain, constipation and small bowel obstruction Most likely diagnosis given after review of the tests above:: Constipation UTI pelvic hernia Admission Indicated Admission indicated?: not indicated Admission Request Was there a request for admission?: No Disposition Plan Disposition Plan: Discharge Discharge Attestation Discharge Attestation: The patient was given an opportunity to ask questions and understood the discharge instructions. Discharge instructions specifically effects, indications for sooner follow up or return to the emergency department, and the expected course of current diagnosis. Patient condition: Stable Discharge Plan Plan Patient Disposition: HOME (Self Care) Discharge Disposition comment: stable Prescriptions/Referrals Prescriptions/Med Rec: New peg 3350-electrolytes [Golytely] 236-22.74-6.74 -5.86 gram recon soln 240 ml PO Q10M Qty: 4000 0RF Rx Instructions: until fecal effluent is clear cefuroxime axetil 500 mg tablet 500 mg PO BID Qty: 14 0RF No Action zjpxyvcy-iou-Zt-FA 1 mg Tablet 1 tab PO QDAY enoxaparin 40 mg/0.4 mL syringe 40 ml subcut QDAY Patient Comments: INJECT contents of ONE pre-filled PEN SUBCUTANEOUSLY EVERY DAY doxycycline hyclate 100 mg capsule 100 mg PO BID Qty: 14 0RF phenazopyridine [Pyridium] 200 mg tablet 200 mg PO TID Qty: 6 0RF ibuprofen 800 mg tablet 800 mg PO TID PRN (Reason: pain) Qty: 30 0RF hydrocodone-acetaminophen 5-325 mg tablet 1 tab PO BID MDD 10 PRN (Reason: pain) Qty: 10 0RF acetaminophen 650 mg tablet extended release 650 mg PO Q12H PRN (Reason: fever or pain) Qty: 30 0RF acetaminophen-codeine 300-30 mg tablet 1 tab PO TID PRN (Reason: pain) Qty: 15 0RF hydrocodone-acetaminophen 5-325 mg tablet 1 tab PO BID MDD 10 PRN (Reason: pain) Qty: 10 0RF ibuprofen 800 mg tablet 800 mg PO TID PRN (Reason: pain) Qty: 30 0RF Referrals: Tim Thomas MD [Primary Care Provider] - In 1 week Problem List Clinical Impression: Constipation, UTI (urinary tract infection), Pelvic hernia, Cholelithiasis Patient/Caregiver Discharge Instructions Discharge Activity: activity as tolerated Education Materials: Eating a High-Fiber Diet Additional Instructions: Thank you for the opportunity for serving you today. You are stable for discharged . You are advised to: Follow-up with your PCP in 1 to 2 days and as per referral to general surgeon Return to ED for worsening of symptoms Increase oral fluids Take medication as prescribed Print Language: Bangladeshi Stand Alone Forms: Lisandra Award Info., Patient Portal Info Letter PA/RURAL CARRIER Supervising Physician VESNA/RURAL CARRIER Supervising Physician: MD Garo
== END 2025-01-27 13:59 | disposition home or self-care (01) ==
PROVIDERS: Nurse Practitioner Primary Care; Emergency Provider Family Medicine; PCP Family Medicine
DX: K80.20 Calculus of gallbladder without cholecystitis without obstruction (principal); N39.0 Urinary tract infection, site not specified; K42.9 Umbilical hernia without obstruction or gangrene; K59.00 Constipation, unspecified
CPT/HCPCS: 36415; 74176; 80053; 81001; 81025; 83690; 85025; 99283; A9270